=== PATIENT | female | born 1990 | race Caucasian/White ===

== ENCOUNTER → 2020-08-15 13:37 | Outpatient (ROUT) | payer OTHER, SELFPAY | PROVIDERS: Visit Provider Physician Assistant | DX: Z11.59 Encounter for screening for other viral diseases (principal) | CPT/HCPCS: 87635 ==

== ENCOUNTER → 2021-03-19 16:02 | Outpatient (ROUT) | payer OTHER, SELFPAY ==
[2021-03-19 16:27] LABS: COVID19 -Nasal RAPID Negative (Negative)
== END ==
PROVIDERS: PCP Family Medicine; Visit Provider Physician Assistant
DX: R43.0 Anosmia (principal); R05 Cough; R09.81 Nasal congestion; J02.9 Acute pharyngitis, unspecified; Z20.822 Contact with and (suspected) exposure to COVID-19
CPT/HCPCS: 87635

== ENCOUNTER 2022-04-19 18:49 | Emergency (ER) | payer OTHER, SELFPAY ==
[2022-04-19 19:02] VITALS: BP 131/86; PULSE 94; RESP 18; TEMP 36.7; O2SAT 99
[2022-04-19 19:31] LABS: COVID19 -Nasal RAPID Negative (Negative)
== END 2022-04-19 20:43 | disposition left against medical advice (07) ==
PROVIDERS: Emergency Provider Emergency Medicine; PCP Family Medicine
DX: J02.9 Acute pharyngitis, unspecified (principal); Z20.822 Contact with and (suspected) exposure to COVID-19
CPT/HCPCS: 87070; 87635; 87880; 99282; C9803

== ENCOUNTER → 2022-10-02 13:23 | Outpatient (CLI) | payer OTHER, SELFPAY ==
[2022-10-02 14:17] LABS: Add Manual Diff / Slide Review NO; Basophils Absolute Auto 0 /uL (0-100); Basophils Percent Auto 0.3 % (0-2); Eosinophils Absolute Auto 100 /uL (0-450); Eosinophils Percent Auto 1.7 % (2-4); Hematocrit 38.9 % (36-46); Hemoglobin 13.5 g/dL (12.0-16.0); Lymphocytes Absolute Auto 1500 /uL (1100-4500); Lymphocytes Percent Auto 24.2 % (25-40); Mean Corpuscular HGB Conc 34.6 % (30-36); Mean Corpuscular Hemoglobin 32.1 PG (26-34); Mean Corpuscular Volume 92.8 fL (80-100); Monocytes Absolute Auto 400 /uL (0-900); Monocytes Percent Auto 6.4 % (3-14); Neutrophils Absolute Auto 4100 /uL (1500-7000); Neutrophils Percent Auto 67.4 % (50-75); Platelet Count 201 X10^3/uL (150-400); Red Blood Cell Count 4.19 X10^6/uL (4.0-5.2); Red Cell Distribution Width 12.7 % (11.6-14.8); White Blood Cell Count 6.1 X10^3/uL (4.5-11.0)
[2022-10-02 15:38] LABS: Appearance Urine UA CLEAR; Bilirubin Urine UA NEGATIVE (NEGATIVE); Color Urine UA YELLOW; Glucose Urine UA NEGATIVE (Negative); Ketones Urine UA TRACE (NEGATIVE); Leukocyte Esterase Urine UA NEGATIVE (NEGATIVE); Nitrite Urine UA NEGATIVE (Negative); Occult Blood Urine UA NEGATIVE (Negative); Protein Urine UA NEGATIVE (Negative); Specific Gravity Urine UA >=1.030 (1.000-1.035); Urobilinogen Urine UA 0.2 E.U./dL (0.2); pH Urine UA 5.5 (4.5-8.0)
[2022-10-02 15:46] LABS: Hepatitis B Surface Antigen NEGATIVE s/c (NEGATIVE)
[2022-10-02 16:06] LABS: HIV 1 & 2 Ab/Ag 4th Gen Combo NEGATIVE (NEGATIVE); Hep C Virus Ab w/Reflex Quant NEGATIVE s/c (NEGATIVE)
[2022-10-03 08:39] LABS: RPR Screen Non Reactive (Non Reactive)
[2022-10-04 15:36] LABS: Varicella IgG Antibody 1925 index (Immune >165)
== END ==
PROVIDERS: PCP Family Medicine; Referring Provider Family Medicine; Visit Provider Family Medicine
DX: Z34.81 Encounter for supervision of other normal pregnancy, first trimester (principal)
CPT/HCPCS: 36415; 80055; 81003; 86787; 86803; 86850; 86900; 86901; 87086; 87389

== ENCOUNTER 2022-10-21 13:04 | Emergency (ER) | payer OTHER, SELFPAY ==
[2022-10-21 13:13] VITALS: BP 152/86; PULSE 120; RESP 16; TEMP 37; O2SAT 100; BMI 23.5
--- NOTE | 2022-10-21 13:19 | DI.US.S_ITS ---
PROCEDURE: US OB <= 14 WEEKS FETUS INDICATIONS: vaginal bleeding 13 weeks OUTSIDE/PRIOR DATING DATA: Last menstrual period (LMP): 07/17/2022 LMP-based estimated date of delivery (LUANA): 04/23/2023. First dating scan (date and location): 10/21/2022. Estimated date of delivery (LUANA) from first dating scan: 04/23/2023. TECHNIQUE: Real-time scanning was performed of the fetus, with image documentation and biometric measurements. COMPARISON: None. FINDINGS: General: A single living intrauterine gestation is present. Presentation: Variable. Placenta: Placental position is posterior , without previa. Amniotic fluid index: Subjectively adequate heart rate: 150 beats per minute. Maternal cervical canal: 3.7 cm long. Normal lower limit is 2.5 cm. biometrics: Biparietal diameter: 26 cm, 14 week 4 day Head circumference: 10.1 cm, 14 week 5 day Abdominal circumference: 8.9 cm, 15 week 1 day Femur length: 1.3 cm, 13 week 5 day Clinically estimated gestational age: 13 week 5 day Composite gestational age from present scan: 14 week 3 day Anatomic survey: Visualized anatomy within normal limits IMPRESSION: Single live intrauterine consistent with a 14 week 3 day gestation by current ultrasound Approved by: Sam Walters M.D. on 10/21/2022 at 14:14
--- NOTE | 2022-10-21 14:38 | ED_ITS ---
HPI - <Kathy Handley PA-C - Last Filed: 10/21/22 16:02> General Chief complaint: Vaginal Bleeding Stated complaint: 13 W, Cramping, Bleeding Time Seen by Provider: 10/21/22 13:26 Source: patient Mode of arrival: Ambulatory History of Present Illness HPI Narrative: 31-year-old 101 female who is 13 weeks presents to the ED with 2 days of pelvic cramping and spotting. Patient states that her cramping started last night, this morning she noted some bright red blood on the tissue when she was wiping. Patient states that her cramping has stayed the same since it started, the bleeding seems to have reduced. Patient denies fever, chills, chest pain, shortness of breath, dysuria, lightheadedness, dizziness, syncope. Patient has a history of cervical incompetence, has required cervical cerclage for a term . Patient had a OB ultrasound last week that was normal. Patient also has a cerclage scheduled for November [address] Beebe at [facility]. Related Data Home Medications Medication Instructions Recorded Confirmed prenat.vits,kiersten,non-ykww-uyrct 1 tab PO DAILY 08/31/22 09/22/22 Previous Rx's Medication Instructions Recorded ondansetron 4 mg disintegrating 4 mg PO Q8H PRN nausea and 09/22/22 tablet vomiting #30 tabs vit 67-iron ps 29 mg 1 cap PO DAILY #90 caps 09/22/22 iron-folate no.1 1 mg-dha 200 mg capsule (Vitafol Ultra) Allergies Allergy/AdvReac Type Severity Reaction Status Date / Time No Known Drug Allergies Allergy Unverified 09/22/22 12:07 Review of Systems <Kathy Handley PA-C - Last Filed: 10/21/22 16:02> Review of Systems ROS Unobtainable: All systems reviewed & are unremarkable except as noted in HPI and below Constitutional Constitutional: Denies chills, Denies fatigue, Denies fever(s), Denies frequent falls, Denies lethargy and Denies weakness Eyes Eyes: Denies change in vision, Denies eye discharge, Denies irritation and Denies loss of vision ENT Ears, Nose, Mouth, and Throat: Denies change in voice, Denies dizziness, Denies neck pain, Denies sore throat and Denies throat swelling Cardiovascular Cardiovascular: Denies chest pain, Denies irregular heart rhythm, Denies lightheadedness, Denies palpitations, Denies dyspnea, Denies dyspnea on exertion and Denies orthopnea Respiratory Respiratory: Denies cough, Denies dyspnea, Denies dyspnea on exertion and Denies wheezing Gastrointestinal Gastrointestinal: Denies abdominal pain, Denies change in bowel habits, Denies diarrhea, Denies nausea and Denies vomiting Genitourinary Genitourinary: Denies hematuria, Denies flank pain, Denies urinary incontinence and Denies urinary urgency Comments: Vaginal spotting; pelvic cramping Musculoskeletal Musculoskeletal: Denies back pain, Denies muscle weakness, Denies neck pain, Denies numbness and Denies tingling Integumentary/Breasts Skin/Breast: Denies pruritus, Denies erythema, Denies rash and Denies wounds Neurologic Neurologic: Denies behavioral changes, Denies confusion, Denies dizziness, Denies frequent falls, Denies loss of vision, Denies numbness, Denies tingling and Denies weakness Psychiatric Psychiatric: Denies anxiety, Denies behavioral changes, Denies confusion, Denies depression, Denies homicidal ideation and Denies suicidal ideation Endocrine Endocrine: Denies fatigue, Denies flushing and Denies palpitations Hematologic/Lymphatic Hematologic/Lymphatic: Denies easy bruising Allergic/Immunologic Allergic/Immunologic: Denies urticaria, Denies throat swelling and Denies wheezing Exam <Kathy Handley PA-C - Last Filed: 10/21/22 16:02> Narrative Exam Narrative: Const General:?cooperative, healthy appearing and comfortable [facility] Head:?normal to inspection Ears:?hearing grossly normal bilaterally Nose:?external nose normal Face and sinus:?normal facial exam and sinuses nontender Mouth:?oral mucosae normal Throat:?posterior oropharynx normal Eyes General:?appearance normal, both eyes and all related structures Neck Neck:?normal visual inspection and no lymphadenopathy noted Resp Effort & Inspection:?normal respiratory effort Auscultation:?clear to auscultation bilaterally Cardio Rate:?regular rate Rhythm:?regular rhythm GI Abdomen is soft, appears appropriately distended for gestation age. Abdomen is not TTP Neuro General:?patient alert, patient awake and patient oriented x3 Initial Vital Signs Initial Vital Signs: Vital Signs Temperature 98.6 F 10/21/22 13:13 Pulse Rate 120 H 10/21/22 13:13 Respiratory Rate 16 10/21/22 13:13 Blood Pressure 152/86 H 10/21/22 13:13 Pulse Oximetry 100 10/21/22 13:13 Oxygen Delivery Method 10/21/22 13:13 <Will Dias MD - Last Filed: 10/22/22 11:27> Initial Vital Signs Initial Vital Signs: Vital Signs Temperature 98.6 F 10/21/22 13:13 Pulse Rate 120 H 10/21/22 13:13 Respiratory Rate 16 10/21/22 13:13 Blood Pressure 152/86 H 10/21/22 13:13 Pulse Oximetry 100 10/21/22 13:13 Oxygen Delivery Method 10/21/22 13:13 Course <Kathy Handley PA-C - Last Filed: 10/21/22 16:02> Orders Ordered: Discontinued Medications Acetaminophen (Acetaminophen 325 Mg Tablet) 975 mg PO NOW ONE Stop: 10/21/22 14:37 Last Admin: 10/21/22 14:43 Dose: 975 mg Documented By: KANU Vital Signs Vital signs: Vital Signs - 8 hr 10/21/22 13:13 Temperature 98.6 F Pulse Rate 120 H Respiratory Rate 16 Blood Pressure 152/86 H Pulse Oximetry 100 Oxygen Delivery Method Room Air <Will Dias MD - Last Filed: 10/22/22 11:27> Orders Ordered: Discontinued Medications Acetaminophen (Acetaminophen 325 Mg Tablet) 975 mg PO NOW ONE Stop: 10/21/22 14:37 Last Admin: 10/21/22 14:43 Dose: 975 mg Documented By: KANU Vital Signs Vital signs: Vital Signs - 8 hr 10/21/22 13:13 Temperature 98.6 F Pulse Rate 120 H Respiratory Rate 16 Blood Pressure 152/86 H Pulse Oximetry 100 Oxygen Delivery Method Room Air MDM - OB/Uterine Contractions <Kathy Handley PA-C - Last Filed: 10/21/22 16:02> Lab Data 10/21/22 14:25 10/21/22 14:25 Labs: Lab Results 10/21/22 10/21/22 10/21/22 Range/Units 14:25 14:25 14:25 WBC 8.1 (4.5-11.0) X10^3/uL RBC 4.26 (4.0-5.2) X10^6/uL Hgb 13.8 (12.0-16.0) g/dL Hct 39.1 (36-46) % MCV 91.7 (80-100) fL MCH 32.3 (26-34) PG MCHC 35.2 (30-36) % RDW 12.5 (11.6-14.8) % Plt Count 208 (150-400) X10^3/uL Neut % (Auto) 78.3 H (50-75) % Lymph % (Auto) 15.8 L (25-40) % [place] % (Auto) 4.8 (3-14) % Eos % (Auto) 0.7 L (2-4) % Baso % (Auto) 0.4 (0-2) % Neut # (Auto) 6300 (5833-9089) /uL Lymph # (Auto) 1300 (7067-4029) /uL [place] # (Auto) 400 (0-900) /uL Eos # (Auto) 100 (0-450) /uL Baso # (Auto) 0 (0-100) /uL Sodium 136 L (137-145) mmol/L Potassium 4.1 (3.4-5.1) mmol/L Chloride 101 (98-107) mmol/L Carbon Dioxide 25 (22-32) mmol/L BUN 7 (7-17) mg/dL Creatinine 0.54 (0.52-1.04) mg/dL Estimated GFR > 60 (>60) mL/min BUN/Creatinine Ratio 13.0 (6-22) Glucose 90 (70-100) mg/dL Calcium 8.9 (8.4-10.2) mg/dL Total Bilirubin 0.5 (0.2-1.3) mg/dL AST 21 (14-36) IU/L ALT 12 (<35) IU/L Alkaline Phosphatase 53 (38-126) U/L Total Protein 7.3 (6.3-8.2) g/dL Albumin 4.0 (3.5-5.0) g/dL Globulin 3.3 (1.7-4.1) g/dL Albumin/Globulin Ratio 1.2 (1.0-2.8) HCG, Quant 49536 mIU/mL Blood Type B Positive Antibody Screen Negative Urine Dip Bedside Urine Glucose Negative Bedside Urine Bilirubin - Negative Bedside Urine Ketone - Negative Urine Specific [place] 1.010 Bedside Urine Occult Blood - Negative Bedside Urine pH 7.0 Bedside Urine Protein - Negative Bedside Urine Urobilinogen - Negative Bedside Urine Nitrite - Negative Bedside Urine Leukocytes - Negative Esterase MDM Narrative Medical decision making narrative: 31-year-old 89 female who is 13 weeks presents to the ED with 2 days of pelvic cramping and spotting. Concern for threatened miscarriage versus cervical incompetence versus other. Will obtain labs, UA, OB ultrasound. Will reassess. Urine, labs within normal limits. Ultrasound shows single live intrauterine consistent with a [address] Beebe from [facility] was consulted. Spoke with Dr. Singletary, who is covering for Dr. Beebe today who will see her in the next 24-48 hours in clinic. [facility] has reached out to the patient and patient is scheduled for a appointment time for tomorrow morning. Discussed findings with patient and next steps. ED return precautions were discussed with patient. Patient verbalized understanding. Medical records reviewed: Yes <Will Dias MD - Last Filed: 10/22/22 11:27> Medical Records Medical records narrative: I was immediately available in the department for consultation. Documentation has been reviewed. I agree with assessment and plan. Lab Data Labs: Lab Results 10/21/22 10/21/22 10/21/22 Range/Units 14:25 14:25 14:25 WBC 8.1 (4.5-11.0) X10^3/uL RBC 4.26 (4.0-5.2) X10^6/uL Hgb 13.8 (12.0-16.0) g/dL Hct 39.1 (36-46) % MCV 91.7 (80-100) fL MCH 32.3 (26-34) PG MCHC 35.2 (30-36) % RDW 12.5 (11.6-14.8) % Plt Count 208 (150-400) X10^3/uL Neut % (Auto) 78.3 H (50-75) % Lymph % (Auto) 15.8 L (25-40) % [place] % (Auto) 4.8 (3-14) % Eos % (Auto) 0.7 L (2-4) % Baso % (Auto) 0.4 (0-2) % Neut # (Auto) 6300 (7323-0563) /uL Lymph # (Auto) 1300 (5752-4372) /uL [place] # (Auto) 400 (0-900) /uL Eos # (Auto) 100 (0-450) /uL Baso # (Auto) 0 (0-100) /uL Sodium 136 L (137-145) mmol/L Potassium 4.1 (3.4-5.1) mmol/L Chloride 101 (98-107) mmol/L Carbon Dioxide 25 (22-32) mmol/L BUN 7 (7-17) mg/dL Creatinine 0.54 (0.52-1.04) mg/dL Estimated GFR > 60 (>60) mL/min BUN/Creatinine Ratio 13.0 (6-22) Glucose 90 (70-100) mg/dL Calcium 8.9 (8.4-10.2) mg/dL Total Bilirubin 0.5 (0.2-1.3) mg/dL AST 21 (14-36) IU/L ALT 12 (<35) IU/L Alkaline Phosphatase 53 (38-126) U/L Total Protein 7.3 (6.3-8.2) g/dL Albumin 4.0 (3.5-5.0) g/dL Globulin 3.3 (1.7-4.1) g/dL Albumin/Globulin Ratio 1.2 (1.0-2.8) HCG, Quant 91673 mIU/mL Blood Type B Positive Antibody Screen Negative Urine Dip Bedside Urine Glucose Negative Bedside Urine Bilirubin - Negative Bedside Urine Ketone - Negative Urine Specific [place] 1.010 Bedside Urine Occult Blood - Negative Bedside Urine pH 7.0 Bedside Urine Protein - Negative Bedside Urine Urobilinogen - Negative Bedside Urine Nitrite - Negative Bedside Urine Leukocytes - Negative Esterase Discharge Plan Departure Patient Disposition: Home Clinical Impression: Vaginal bleeding during Instructions: DI for Vaginal Bleeding During Activity Restrictions/Additional Instructions: You were evaluated in the ED today for vaginal bleeding and cramping during . Your labs, urine were normal. Your ultrasound was normal as well showing a single live intrauterine [address] Beebe from [facility] who is later to do your cerclage later this month. Per Dr. Beebe, they will be reaching out to you via telephone and will see you in the clinic in the next 24-48 hours for further evaluation. Pelvic cramping and bleeding during can sometimes be a benign occurrence versus a sign of a miscarriage. If you have increased bleeding, worsening abdominal pain, please return to the ED. Please follow-up with Dr. Chapa as soon as possible. Prescriptions: No Action Vitafol Ultra 29 mg iron- 1 mg-200 mg capsule 1 cap PO DAILY Qty: 90 3RF ondansetron 4 mg tablet,disintegrating 4 mg PO Q8H PRN (Reason: nausea and vomiting) Qty: 30 3RF prenat.vits,kiersten,muh-[id number]-ywbva Tablet 1 tab PO DAILY Referrals: Shanta Blanchard MD [Primary Care Provider] - Stand Alone Forms: Patient Portal/API
[2022-10-21] MEDS: ACETAMINOPHEN 325 MG TABLET 975 MG PO (14:43)
[2022-10-21 14:55] LABS: Add Manual Diff / Slide Review NO; Basophils Absolute Auto 0 /uL (0-100); Basophils Percent Auto 0.4 % (0-2); Eosinophils Absolute Auto 100 /uL (0-450); Eosinophils Percent Auto 0.7 % (2-4); Hematocrit 39.1 % (36-46); Hemoglobin 13.8 g/dL (12.0-16.0); Lymphocytes Absolute Auto 1300 /uL (1100-4500); Lymphocytes Percent Auto 15.8 % (25-40); Mean Corpuscular HGB Conc 35.2 % (30-36); Mean Corpuscular Hemoglobin 32.3 PG (26-34); Mean Corpuscular Volume 91.7 fL (80-100); Monocytes Absolute Auto 400 /uL (0-900); Monocytes Percent Auto 4.8 % (3-14); Neutrophils Absolute Auto 6300 /uL (1500-7000); Neutrophils Percent Auto 78.3 % (50-75); Platelet Count 208 X10^3/uL (150-400); Red Blood Cell Count 4.26 X10^6/uL (4.0-5.2); Red Cell Distribution Width 12.5 % (11.6-14.8); White Blood Cell Count 8.1 X10^3/uL (4.5-11.0)
[2022-10-21 15:06] LABS: Alanine Aminotransferase 12 IU/L (<35); Albumin Globulin Ratio 1.2 (1.0-2.8); Alkaline Phosphatase 53 U/L (38-126); Aspartate Aminotransferase 21 IU/L (14-36); Bilirubin Total 0.5 mg/dL (0.2-1.3); Blood Urea Nitrogen 7 mg/dL (7-17); Calcium 8.9 mg/dL (8.4-10.2); Carbon Dioxide 25 mmol/L (22-32); Chloride 101 mmol/L (98-107); Estimated Glomerular Filt Rate > 60 mL/min (>60); Globulin 3.3 g/dL (1.7-4.1); Glucose 90 mg/dL (70-100); HEMOLYSIS < 15 (0-50); Potassium 4.1 mmol/L (3.4-5.1); Sodium 136 mmol/L (137-145); Total Protein 7.3 g/dL (6.3-8.2)
[2022-10-21 15:47] LABS: HCG Quantitative /Beta subunit 44955 mIU/mL
[2022-10-21 15:58] VITALS: BP 113/70; PULSE 88; RESP 16; O2SAT 99
== END 2022-10-21 15:59 | disposition home or self-care (01) ==
PROVIDERS: Emergency Medicine; Emergency Provider Student in an Organized Health Care Education/Training Program; PCP Family Medicine
DX: O46.91 Antepartum hemorrhage, unspecified, first trimester (principal); R10.2 Pelvic and perineal pain; Z3A.13 13 weeks gestation of pregnancy
CPT/HCPCS: 36415; 76801; 80053; 81003; 84702; 85025; 86850; 86900; 86901; 99283; 99284

== ENCOUNTER → 2023-01-26 10:08 | Outpatient (CLI) | payer OTHER, SELFPAY ==
[2023-01-26 12:49] LABS: GTT (PREG) 1 Hour PP 50gm Dose 108 mg/dL (76-139)
[2023-01-26 13:25] LABS: Add Manual Diff / Slide Review NO; Basophils Absolute Auto 0 /uL (0-100); Basophils Percent Auto 0.4 % (0-2); Eosinophils Absolute Auto 200 /uL (0-450); Hematocrit 34.6 % (36-46); Hemoglobin 12.6 g/dL (12.0-16.0); Lymphocytes Absolute Auto 1600 /uL (1100-4500); Lymphocytes Percent Auto 20.5 % (25-40); Mean Corpuscular HGB Conc 36.3 % (30-36); Mean Corpuscular Hemoglobin 34.6 PG (26-34); Mean Corpuscular Volume 95.2 fL (80-100); Monocytes Absolute Auto 500 /uL (0-900); Monocytes Percent Auto 6.1 % (3-14); Neutrophils Absolute Auto 5600 /uL (1500-7000); Platelet Count 191 X10^3/uL (150-400); Red Blood Cell Count 3.64 X10^6/uL (4.0-5.2); Red Cell Distribution Width 13.1 % (11.6-14.8)
== END ==
PROVIDERS: PCP Family Medicine; Referring Provider Family Medicine; Visit Provider Family Medicine
DX: Z34.82 Encounter for supervision of other normal pregnancy, second trimester (principal); Z3A.27 27 weeks gestation of pregnancy
CPT/HCPCS: 36415; 82950; 85025

== ENCOUNTER → 2023-03-03 13:24 | Outpatient (CLI) | payer OTHER, SELFPAY ==
--- NOTE | 2023-03-03 13:25 | DI.US.S_ITS ---
PROCEDURE: US OB LIMITED INDICATIONS: LGA OUTSIDE/PRIOR DATING DATA: Last menstrual period (LMP): July 17, 2022. LMP-based estimated date of delivery (LUANA): April 23, 2023. First dating scan (date and location): October 21, 2022. TECHNIQUE: Real-time scanning was performed of the fetus, with image documentation and biometric measurements. Endovaginal scanning: Not performed COMPARISON: None. FINDINGS: General: A single living intrauterine gestation is present. Presentation: Vertex. Placenta: Placental position is posterior , without previa. Amniotic fluid index: 24.1 cm cm, normal range is 5-24 cm. Single deepest vertical pocket is 8.6 cm. heart rate: 140 beats per minute. Maternal cervical canal: 2.5 cm long with cerclage. Normal lower limit is 2.5 cm. biometrics: Biparietal diameter: 8.5 cm, 34 weeks and 2 days Head circumference: 30.7 cm, 34 weeks and 2 days Abdominal circumference: 28.7 cm, 32 weeks and 5 days Femur length: 6.1 cm, 31 weeks and 4 days Clinically estimated gestational age: 32 weeks and 5 days Composite gestational age from present scan: 33 weeks and 2 days Estimated weight and percentile: 2024 g which correlates with the 39th percentile Other: Not applicable. IMPRESSION: Single living intrauterine gestation with estimated sonographic gestational age of approximately 33 weeks and 2 days versus approximately 32 weeks and 5 days based off clinical dating. Normal interval growth has occurred. Measurements are concordant. Four-quadrant GIN measures approximately 24.1 cm with largest vertical pocket at 8.6 cm. Measurements are at the 95th percentile for gestational age. Cervical length of 2.5 cm with cerclage. We strive to produce accurate, complete, and clear reports of imaging services. To assist us in improving patient care, this report was composed using standard report templates and voice recognition software. Therefore, it may contain abnormal punctuation, insertions and/or omissions. Occasional wrong-word or sound-alike substitutions may occur. Though we review the report and make efforts to correct it, we do recommend that the report be read carefully in proper context to recognize any text inaccuracies. Dictated by: Garland De La Vega M.D. on 03/03/2023 at 17:48 Approved by: Garland De La Vega M.D. on 03/03/2023 at 17:52
== END ==
PROVIDERS: PCP Family Medicine; Referring Provider Family Medicine; Visit Provider Family Medicine
DX: O26.843 Uterine size-date discrepancy, third trimester (principal); Z3A.33 33 weeks gestation of pregnancy
CPT/HCPCS: 76815

== ENCOUNTER 2023-03-08 10:42 | Outpatient (CLI) | payer OTHER, SELFPAY | END 2023-03-08 11:20 | disposition home or self-care (01) | LOC: LABOR 11:06 → OB 03-19 09:48 | PROVIDERS: PCP Family Medicine; Referring Provider Family Medicine; Visit Provider Family Medicine | DX: O40.3XX0 Polyhydramnios, third trimester, not applicable or unspecified (principal); Z3A.33 33 weeks gestation of pregnancy | CPT/HCPCS: 36415; 59025; 82950; G0378; G0379 ==

== ENCOUNTER → 2023-03-08 11:25 | Outpatient (CLI) | payer OTHER, SELFPAY ==
[2023-03-08 13:43] LABS: GTT (PREG) 1 Hour PP 50gm Dose 107 mg/dL (76-139)
== END ==
PROVIDERS: PCP Family Medicine; Referring Provider Family Medicine; Visit Provider Family Medicine
DX: O40.9XX0 Polyhydramnios, unspecified trimester, not applicable or unspecified (principal)
CPT/HCPCS: 36415; 82950

== ENCOUNTER → 2023-03-11 11:20 | Outpatient (CLI) | payer OTHER, SELFPAY ==
--- NOTE | 2023-03-11 11:21 | DI.US.S_ITS ---
PROCEDURE: US OB LIMITED INDICATIONS: POLYHYDRAMINOS FOLLOW UP OUTSIDE/PRIOR DATING DATA: Last menstrual period (LMP): 07/17/2022. LMP-based estimated date of delivery (LUANA): 04/23/2023. First dating scan (date and location): 10/21/2022; [facility]. Estimated date of delivery (LUANA) from first dating scan: 04/20/2023. The calculations are made using the working LUANA of 04/23/2023. TECHNIQUE: Real-time scanning was performed of the fetus, with image documentation and biometric measurements. Biophysical profile was also obtained. COMPARISON: [facility], OB <= 14 WEEKS FETUS, 10/21/2022, 13:57. [facility], OB LIMITED, 03/03/2023, 13:35. FINDINGS: General: A single living intrauterine gestation is present. Presentation: Vertex. Placenta: Placental position is posterior , without previa. Amniotic fluid index: 29.2 cm, normal range is 5-24 cm. Single deepest vertical pocket is a 0.4 cm. heart rate: 121 beats per minute. Maternal cervical canal: Not visualized biometrics: Not performed Clinically estimated gestational age: 33 weeks 6 days IMPRESSION: 1. A single living intrauterine gestation redemonstrated. 2. GIN 29.2 cm, consistent with polyhydramnios. We strive to produce accurate, complete, and clear reports of imaging services. To assist us in improving patient care, this report was composed using standard report templates and voice recognition software. Therefore, it may contain abnormal punctuation, insertions and/or omissions. Occasional wrong-word or sound-alike substitutions may occur. Though we review the report and make efforts to correct it, we do recommend that the report be read carefully in proper context to recognize any text inaccuracies. Dictated by: Vince Noriega M.D. on 03/11/2023 at 17:10 Approved by: Vince Noriega M.D. on 03/11/2023 at 22:03
== END ==
PROVIDERS: PCP Family Medicine; Referring Provider Family Medicine; Visit Provider Family Medicine
DX: O40.3XX0 Polyhydramnios, third trimester, not applicable or unspecified (principal); Z3A.33 33 weeks gestation of pregnancy
CPT/HCPCS: 76815

== ENCOUNTER 2023-03-17 09:34 | Outpatient (CLI) | payer OTHER, SELFPAY ==
--- NOTE | 2023-03-17 11:15 | PM.OBTRLD ---
Visit Information Visit Information Date of evaluation: 03/17/23 Primary OB Provider: Shanta Blanchard Comments/Additional reasons for admission: 32yo at 34w5d here for NST for polyhydramnios. No vaginal bleeding, LOF. Feeling intermittent Rodney-Gonzalez. Feeling baby move regularly. [facility] Medical History (Updated 03/05/23 @ 09:33 by Shanta Blanchard MD) Abnormal Pap smear of cervix (~2015) Anxiety Human papilloma virus (~2015) No active medical problems Ovarian cyst (~2010) Vertigo (~2014) Surgical History (Updated 08/31/22 @ 10:03 by Joy Lindsay, RN) History of removal of skin mole [place] teeth extracted Family History (Updated 08/31/22 @ 10:06 by Joy Lindsay, RN) Father Hypertension Hyperlipidemia Mother Skin cancer Hyperlipidemia Grandfather Stroke Melanoma Grandfather Lung cancer Grandmother Alzheimer disease Grandmother Alzheimer disease Social History marital status: number of children: 1 household members: spouse and children lives independently: Yes caregiver/support person: Yes housing: house pets and animals: Yes (3 dogs) education level: college (lakhwinder's degree) occupational status: employed current occupational exposures/hazards: No special cami needs: No travel history: recent (domestic only) seatbelt use: always water heater temp set < 120 deg: Yes working smoke detector in home: Yes fire extinguisher in home: Yes carbon monox detector in home: Yes firearms in home: Yes firearms unloaded and locked: Yes do you feel safe at home: Yes Smoking Status: Never smoker second hand exposure: No alcohol intake: former (rarely when not ) substance use type: does not use during the past year weight has: remained stable well-balanced diet: about half the time daily servings fruits/ve-1 caffeine: Yes (aware of 200mg limit) Type(s) of exercise: aerobic and weight lifting frequency: 3-4 times per week Evaluation Evaluation Baseline heart rate: 130 Variability: Moderate (11-25) monitor accelerations: Present Monitor Decelerations: Absent Category of Tracing: Reactive Diagnosis, Plan/Disposition Final Diagnosis (1) Polyhydramnios: Status: Acute Plan/Disposition Plan: 32yo at 34w5d here for NST for polyhydramnios. NST reactive. GIN in clinic 25.1. Continue twice weekly NST with weekly GIN. OB Disposition: home
== END 2023-03-17 10:30 | disposition home or self-care (01) ==
LOC: LABOR 09:55 → OB 03-19 16:15
PROVIDERS: PCP Family Medicine; Referring Provider Family Medicine; Visit Provider Family Medicine
DX: O40.3XX0 Polyhydramnios, third trimester, not applicable or unspecified (principal); Z3A.34 34 weeks gestation of pregnancy
CPT/HCPCS: 59025; G0378; G0379

== ENCOUNTER 2023-03-19 10:33 | Outpatient (CLI) | payer OTHER, SELFPAY | END 2023-03-19 11:10 | disposition home or self-care (01) | LOC: LABOR 10:47 → OB 16:13 | PROVIDERS: PCP Family Medicine; Referring Provider Family Medicine; Visit Provider Family Medicine | DX: O40.3XX0 Polyhydramnios, third trimester, not applicable or unspecified (principal); Z3A.35 35 weeks gestation of pregnancy | CPT/HCPCS: 59025; G0378; G0379 ==

== ENCOUNTER 2023-03-22 10:28 | Outpatient (CLI) | payer OTHER, SELFPAY ==
--- NOTE | 2023-03-22 10:54 | P.TNLD_ITS ---
Visit Information Visit Information Date of evaluation: 03/22/23 Primary OB Provider: Shanta Blanchard Comments/Additional reasons for admission: Pt is a 32yo at 35w3d here for NST for polyhydramnios. No vaginal bleeding, contractions, LOF. She is feeling her baby move regularly. [facility] Medical History (Updated 03/05/23 @ 09:33 by Shanta Blanchard MD) Abnormal Pap smear of cervix (~2015) Anxiety Human papilloma virus (~2015) No active medical problems Ovarian cyst (~2010) Vertigo (~2014) Surgical History (Updated 08/31/22 @ 10:03 by Joy Lindsay, RN) History of removal of skin mole [place] teeth extracted Family History (Updated 08/31/22 @ 10:06 by Joy Lindsay, RN) Father Hypertension Hyperlipidemia Mother Skin cancer Hyperlipidemia Grandfather Stroke Melanoma Grandfather Lung cancer Grandmother Alzheimer disease Grandmother Alzheimer disease Social History marital status: number of children: 1 household members: spouse and children lives independently: Yes caregiver/support person: Yes housing: house pets and animals: Yes (3 dogs) education level: college (lakhwinder's degree) occupational status: employed current occupational exposures/hazards: No special cami needs: No travel history: recent (domestic only) seatbelt use: always water heater temp set < 120 deg: Yes working smoke detector in home: Yes fire extinguisher in home: Yes carbon monox detector in home: Yes firearms in home: Yes firearms unloaded and locked: Yes do you feel safe at home: Yes Smoking Status: Never smoker second hand exposure: No alcohol intake: former (rarely when not ) substance use type: does not use during the past year weight has: remained stable well-balanced diet: about half the time daily servings fruits/ve-1 caffeine: Yes (aware of 200mg limit) Type(s) of exercise: aerobic and weight lifting frequency: 3-4 times per week Evaluation Evaluation Baseline heart rate: 125 Variability: Moderate (11-25) monitor accelerations: Present Monitor Decelerations: Absent Category of Tracing: Reactive Diagnosis, Plan/Disposition Final Diagnosis (1) Polyhydramnios: Status: Acute Plan/Disposition Plan: Pt is a 32yo at 35w3d here for NST for polyhydramnios. NST reactive. Continue twice weekly NST with weekly GIN. OB Disposition: home
== END 2023-03-22 10:58 | disposition home or self-care (01) ==
LOC: LABOR 10:31 → OB 03-25 14:52
PROVIDERS: PCP Family Medicine; Referring Provider Family Medicine; Visit Provider Family Medicine
DX: O40.3XX0 Polyhydramnios, third trimester, not applicable or unspecified (principal); Z3A.35 35 weeks gestation of pregnancy
CPT/HCPCS: 59025; G0378; G0379

== ENCOUNTER 2023-03-26 10:27 | Outpatient (CLI) | payer OTHER, SELFPAY ==
--- NOTE | 2023-03-26 10:51 | P.TNLD_ITS ---
Visit Information Visit Information Date of evaluation: 03/26/23 Primary OB Provider: Shanta Blanchard Comments/Additional reasons for admission: 32yo at 36w0d here for NST for polyhydramnios. Feeling baby move regularly. No LOF, vaginal bleeding, contractions. [facility] Medical History (Updated 03/05/23 @ 09:33 by Shanta Blanchard MD) Abnormal Pap smear of cervix (~2015) Anxiety Human papilloma virus (~2015) No active medical problems Ovarian cyst (~2010) Vertigo (~2014) Surgical History (Updated 08/31/22 @ 10:03 by Joy Lindsay, RN) History of removal of skin mole [place] teeth extracted Family History (Updated 08/31/22 @ 10:06 by Joy iLndsay, RN) Father Hypertension Hyperlipidemia Mother Skin cancer Hyperlipidemia Grandfather Stroke Melanoma Grandfather Lung cancer Grandmother Alzheimer disease Grandmother Alzheimer disease Social History marital status: number of children: 1 household members: spouse and children lives independently: Yes caregiver/support person: Yes housing: house pets and animals: Yes (3 dogs) education level: college (lakhwinder's degree) occupational status: employed current occupational exposures/hazards: No special cami needs: No travel history: recent (domestic only) seatbelt use: always water heater temp set < 120 deg: Yes working smoke detector in home: Yes fire extinguisher in home: Yes carbon monox detector in home: Yes firearms in home: Yes firearms unloaded and locked: Yes do you feel safe at home: Yes Smoking Status: Never smoker second hand exposure: No alcohol intake: former (rarely when not ) substance use type: does not use during the past year weight has: remained stable well-balanced diet: about half the time daily servings fruits/ve-1 caffeine: Yes (aware of 200mg limit) Type(s) of exercise: aerobic and weight lifting frequency: 3-4 times per week Evaluation Evaluation Baseline heart rate: 130 Variability: Moderate (11-25) monitor accelerations: Present Monitor Decelerations: Absent Category of Tracing: Reactive Diagnosis, Plan/Disposition Final Diagnosis (1) Polyhydramnios: Status: Acute Plan/Disposition Plan: 32yo at 36w0d here for NST for polyhydramnios. GIN in clinic later today. NST reactive. Continue testing. OB Disposition: home
== END 2023-03-26 10:55 | disposition home or self-care (01) ==
LOC: LABOR 10:55 → OB 04-01 09:00
PROVIDERS: PCP Family Medicine; Referring Provider Family Medicine; Visit Provider Family Medicine
DX: O40.3XX0 Polyhydramnios, third trimester, not applicable or unspecified (principal); Z3A.36 36 weeks gestation of pregnancy; Z34.82 Encounter for supervision of other normal pregnancy, second trimester; Z3A.26 26 weeks gestation of pregnancy
CPT/HCPCS: 59025; 87653; G0378; G0379

== ENCOUNTER → 2023-03-26 12:01 | Outpatient (CLI) | payer OTHER, SELFPAY ==
[2023-03-27 13:05] LABS: Strep Grp B PCR NEG for Grp B Strep
== END ==
PROVIDERS: PCP Family Medicine; Visit Provider Family Medicine
DX: Z34.82 Encounter for supervision of other normal pregnancy, second trimester (principal); Z3A.26 26 weeks gestation of pregnancy
CPT/HCPCS: 87653

== ENCOUNTER 2023-04-02 10:53 | Day surgery (SDC) | payer OTHER, SELFPAY ==
[2023-04-02] VITALS (7 sets, daily range): BP systolic 102–121; BP diastolic 68–77; PULSE 76–104; RESP 12–26; TEMP 36.3–36.6; O2SAT 98–100; BMI 26.6
--- NOTE | 2023-04-02 10:40 | PM.GYNHP.1 ---
History of Present Illness History of Present Illness Narrative: Irina Rice is a 32 year old at 37w0d here for cerclage removal. Cerclage removal was attempted at [facility] on 03/29, however pt could not tolerate an in-office procedure. Cerclage placed for hx of delivery due to cervical incompetence at 21wks. Pt denies any vaginal bleeding, LOF, or consistent contractions prior to presentation. Since being here, she has felt contractions. She is feeling well. The pts has also been complicated by polyhydramnios with reassuring testing. [facility] Medical History (Updated 03/05/23 @ 09:33 by Shanta Blanchard MD) Abnormal Pap smear of cervix (~2015) Anxiety Human papilloma virus (~2015) No active medical problems Ovarian cyst (~2010) Vertigo (~2014) Surgical History (Updated 08/31/22 @ 10:03 by Joy Lindsay RN) History of removal of skin mole [place] teeth extracted Family History (Updated 08/31/22 @ 10:06 by Joy Lindsay RN) Father Hypertension Hyperlipidemia Mother Skin cancer Hyperlipidemia Grandfather Stroke Melanoma Grandfather Lung cancer Grandmother Alzheimer disease Grandmother Alzheimer disease Social History marital status: number of children: 1 household members: spouse and children lives independently: Yes caregiver/support person: Yes housing: house pets and animals: Yes (3 dogs) education level: college (lakhwinder's degree) occupational status: employed current occupational exposures/hazards: No special cami needs: No travel history: recent (domestic only) seatbelt use: always water heater temp set < 120 deg: Yes working smoke detector in home: Yes fire extinguisher in home: Yes carbon monox detector in home: Yes firearms in home: Yes firearms unloaded and locked: Yes do you feel safe at home: Yes Smoking Status: Never smoker second hand exposure: No alcohol intake: former substance use type: does not use during the past year weight has: remained stable well-balanced diet: about half the time daily servings fruits/ve-1 caffeine: Yes (aware of 200mg limit) Type(s) of exercise: aerobic and weight lifting frequency: 3-4 times per week Meds Home Medications and Allergies Home Medications Medication Instructions Recorded Confirmed Type ondansetron 4 mg disintegrating 4 mg PO Q8H PRN nausea and 09/22/22 03/17/23 Rx tablet vomiting #30 tabs Double Electric Breast Pump and #1 ea 03/05/23 03/17/23 Rx Supplies vit 67-iron ps 29 mg 1 cap PO DAILY 04/02/23 04/02/23 History iron-folate no.1 1 mg-dha 200 mg capsule (Vitafol Ultra) Allergies Allergy/AdvReac Type Severity Reaction Status Date / Time No Known Drug Allergies Allergy Verified 04/02/23 12:07 Exam Const General: cooperative, healthy appearing and comfortable Orientation: alert, awake and oriented x3 Resp Effort & Inspection: normal respiratory effort Auscultation: clear to auscultation bilaterally Cardio Rate: regular rate Rhythm: regular rhythm Heart Sounds: S1 normal, S2 normal and no murmurs GI Inspection: non-distended Palpation: soft and No tender Other: gravid Presentation: vertex Extrem General: no clubbing, cyanosis or edema Assessment & Plan Assessment & Plan narrative: 32yo at 37w0d here for cerclage removal under anesthesia, after not tolerating removal in MFM office. After discussion of risks vs benefits, including bleeding and infection, the pt was agreeable to removal under anesthesia.
--- NOTE | 2023-04-02 11:45 | PC.NURSE ---
NST performed in the center prior to scheduled cerclage removal per md order. NST cat I.
--- NOTE | 2023-04-02 12:23 | PM.PREOP ---
Pre-operative Note Interval Note History & Physical reviewed/Exam performed by Physician: Yes Changes to H&P: No
--- NOTE | 2023-04-02 14:18 | SUR.OPER ---
Lithotomy on padded OR bed, head on pillow, arms secured on padded arm boards at <90 degrees abduction. Legs secured in padded yellow fins stirrups.
--- NOTE | 2023-04-02 14:55 | SUR.PHASEI ---
Pt transferred to room 6 with Gabriella CERNA for FST and then US to be done by Dr hSort and continued eval there.
--- NOTE | 2023-04-02 14:57 | PM.OP.1 ---
Operative Date/Time/Diagnoses Date of procedure: 04/02/23 Time of procedure: 12:30 Pre-op diagnosis: 37w0d gestation Cerclage in place for hx of cervical incompetence Post-op diagnosis: same Procedure & Clinicians Procedure: Cerclage removal under general anesthesia Same procedure as scheduled: Yes Indications: Cerclage in place, term gestation Surgeon: Shanta Blanchard Click Yes if Unassisted: Yes Anesthesia Type: Epidural and Sedation Operative Notes Findings: Normal cervix, 3cm dilated Closure Type: not applicable Specimen(s): none sent Estimated Blood Loss (mL): 1 Blood products transfused: none Procedure in detail: After informed consent, the pt was taken to the OR. Epidural anesthesia was attempted twice without success. The pt was then sedated with propofol. She was placed in dorsal lithotomy position. Vaginal area was prepped with betadine. A sterile speculum was placed and the cervix visualized. The cerclage strings were grasped with forceps, and one strand of the cerclage cut. The cerclage was then removed with the entire length noted to be present. No significant bleeding was noted. The speculum was then removed. Cervical exam was completed, /-2. No complications with the procedure, and the pt and her were updated. Complications: none Post-operative Condition: stable Disposition: PACU Plan for aftercare: NST and monitor for contractions, may need r/o labor
--- NOTE | 2023-04-02 15:13 | DI.US.S_ITS ---
PROCEDURE: US OB BIOPHYSICAL PROFILE INDICATIONS: BPP OUTSIDE/PRIOR DATING DATA: Last menstrual period (LMP): 07/17/2022. LMP-based estimated date of delivery (LUANA): 04/23/2023. First dating scan (date and location): 10/21/2022 at . The calculations are made using the working LUANA of 04/23/2023. TECHNIQUE: Real-time scanning was performed of the fetus, with image documentation and biometric measurements. Biophysical profile was also obtained. COMPARISON: [facility], OB LIMITED, 03/11/2023, 11:37. [facility], OB LIMITED, 03/03/2023, 13:35. [facility], OB <= 14 WEEKS FETUS, 10/21/2022, 13:57. FINDINGS: General: A single living intrauterine gestation is present. Presentation: Vertex. Placenta: Placental position is posterior , without previa. Amniotic fluid index: 25.7 cm, normal range is 5-24 cm. Single deepest vertical pocket is 8.6 cm. heart rate: 145 beats per minute. Maternal cervical canal: Not well seen. Biophysical profile: Tone: 2 points. Movement: 2 points. Respiration: 0 points. Largest pocket of fluid: 2 points. IMPRESSION: 1. A single living intrauterine gestation redemonstrated. The estimated gestational age is 37 weeks 0 day based on LMP. 2. biophysical profile score 6 out of 8. 3. Amniotic fluid index 25.7 (normal 5-24 cm), consistent with polyhydramnios. We strive to produce accurate, complete, and clear reports of imaging services. To assist us in improving patient care, this report was composed using standard report templates and voice recognition software. Therefore, it may contain abnormal punctuation, insertions and/or omissions. Occasional wrong-word or sound-alike substitutions may occur. Though we review the report and make efforts to correct it, we do recommend that the report be read carefully in proper context to recognize any text inaccuracies. Dictated by: Vince Noriega M.D. on 04/02/2023 at 16:57 Approved by: Vince Noriega M.D. on 04/02/2023 at 17:05
== END 2023-04-02 16:50 | disposition home or self-care (01) ==
LOC: OR 10:54 → OB 15:05 → LABOR 15:10
PROVIDERS: PCP Family Medicine; Referring Provider Family Medicine; Visit Provider Family Medicine
PROC: 0UVC7ZZ Restriction of Cervix, Via Natural or Artificial Opening (ICD-10-PCS; CPT 57700; principal; 2023-04-02 12:15)
DX: O34.33 Maternal care for cervical incompetence, third trimester (principal); Z3A.37 37 weeks gestation of pregnancy; O40.3XX0 Polyhydramnios, third trimester, not applicable or unspecified
CPT/HCPCS: 59871; 59025; 76819; J2704

== ENCOUNTER 2023-04-06 12:32 | Outpatient (CLI) | payer OTHER, SELFPAY ==
--- NOTE | 2023-04-06 13:20 | PM.OBTRLD ---
Visit Information Visit Information Date of evaluation: 04/06/23 Primary OB Provider: Shanta Blanchard Comments/Additional reasons for admission: 32yo at 37w4d here for NST for polyhydramnios. She is feeling her baby move regularly. [facility] Medical History (Updated 03/05/23 @ 09:33 by Shanta Blanchard MD) Abnormal Pap smear of cervix (~2015) Anxiety Human papilloma virus (~2015) No active medical problems Ovarian cyst (~2010) Vertigo (~2014) Surgical History (Updated 08/31/22 @ 10:03 by Joy Lindsay, RN) History of removal of skin mole [place] teeth extracted Family History (Updated 08/31/22 @ 10:06 by Joy Lindsay, RN) Father Hypertension Hyperlipidemia Mother Skin cancer Hyperlipidemia Grandfather Stroke Melanoma Grandfather Lung cancer Grandmother Alzheimer disease Grandmother Alzheimer disease Social History marital status: number of children: 1 household members: spouse and children lives independently: Yes caregiver/support person: Yes housing: house pets and animals: Yes (3 dogs) education level: college (lakhwinder's degree) occupational status: employed current occupational exposures/hazards: No special cami needs: No travel history: recent (domestic only) seatbelt use: always water heater temp set < 120 deg: Yes working smoke detector in home: Yes fire extinguisher in home: Yes carbon monox detector in home: Yes firearms in home: Yes firearms unloaded and locked: Yes do you feel safe at home: Yes Smoking Status: Never smoker second hand exposure: No alcohol intake: former substance use type: does not use during the past year weight has: remained stable well-balanced diet: about half the time daily servings fruits/ve-1 caffeine: Yes (aware of 200mg limit) Type(s) of exercise: aerobic and weight lifting frequency: 3-4 times per week Evaluation Evaluation Baseline heart rate: 125 Variability: Moderate (11-25) monitor accelerations: Present Monitor Decelerations: Absent Category of Tracing: Reactive Diagnosis, Plan/Disposition Final Diagnosis (1) Polyhydramnios: Status: Acute Plan/Disposition Plan: 32yo at 37w4d here for NST for polyhydramnios. NST reactive. Stable for d/c home. Repeat NST later this week with GIN. OB Disposition: home
== END 2023-04-06 13:20 | disposition home or self-care (01) ==
LOC: LABOR 13:47 → OB 04-12 06:31
PROVIDERS: PCP Family Medicine; Referring Provider Family Medicine; Visit Provider Family Medicine
DX: O40.3XX0 Polyhydramnios, third trimester, not applicable or unspecified (principal); Z3A.37 37 weeks gestation of pregnancy
CPT/HCPCS: 59025; G0378; G0379

== ENCOUNTER → 2023-04-09 09:56 | Outpatient (CLI) | payer OTHER, SELFPAY ==
--- NOTE | 2023-04-09 09:56 | DI.US.S_ITS ---
PROCEDURE: US OB LIMITED INDICATIONS: [facility]IN FOR POLYHYDRAMNIOS OUTSIDE/PRIOR DATING DATA: Last menstrual period (LMP): 07/17/2022 LMP-based estimated date of delivery (LUANA): 04/23/2023 First dating scan (date and location): 10/21/2022 Estimated date of delivery (LUANA) from first dating scan: 04/23/2023 The calculations are made using the working LUANA of 04/23/2023 TECHNIQUE: Real-time scanning was performed of the fetus, with image documentation. Endovaginal scanning: Not performed COMPARISON: [facility], OB LIMITED, 03/11/2023, 11:37. [facility], OB LIMITED, 03/03/2023, 13:35. FINDINGS: A single living intrauterine gestation is present. Presentation: Vertex Placenta: Placental position is posterior without previa. Amniotic fluid index: 27.7 cm, normal range is 5-24 cm. Single deepest vertical pocket is 9.5 cm. heart rate: 149 beats per minute. Maternal cervical canal: Not well seen. Clinically estimated gestational age: 38 weeks 0 days IMPRESSION: 1. Single live intrauterine . 2. Amniotic fluid index is 27.7 cm, again consistent with polyhydramnios. Approved by: Dez Urias M.D. on 04/09/2023 at 14:11
== END ==
PROVIDERS: PCP Family Medicine; Referring Provider Family Medicine; Visit Provider Family Medicine
DX: O40.3XX0 Polyhydramnios, third trimester, not applicable or unspecified (principal); Z3A.38 38 weeks gestation of pregnancy
CPT/HCPCS: 76815

== ENCOUNTER 2023-04-09 10:13 | Outpatient (CLI) | payer OTHER, SELFPAY ==
--- NOTE | 2023-04-25 17:19 | P.TNLD_ITS ---
Visit Information Visit Information Date of evaluation: 03/10/23 Primary OB Provider: Shanta Blanchard On-call OB Provider: Carlene Palacios Reason for Evaluation: Yes non-stress test non-stress test reason: other (Polyhydramnios) [facility] Medical History (Updated 03/05/23 @ 09:33 by Shanta Blanchard MD) Abnormal Pap smear of cervix (~2015) Anxiety Human papilloma virus (~2015) No active medical problems Ovarian cyst (~2010) Vertigo (~2014) Surgical History (Updated 08/31/22 @ 10:03 by Joy Lindsay, RN) History of removal of skin mole [place] teeth extracted Family History (Updated 08/31/22 @ 10:06 by Joy Lindsay, RN) Father Hypertension Hyperlipidemia Mother Skin cancer Hyperlipidemia Grandfather Stroke Melanoma Grandfather Lung cancer Grandmother Alzheimer disease Grandmother Alzheimer disease Social History marital status: number of children: 1 household members: spouse and children lives independently: Yes caregiver/support person: Yes housing: house pets and animals: Yes (3 dogs) education level: college (lakhwinder's degree) occupational status: employed current occupational exposures/hazards: No special cami needs: No travel history: recent (domestic only) seatbelt use: always water heater temp set < 120 deg: Yes working smoke detector in home: Yes fire extinguisher in home: Yes carbon monox detector in home: Yes firearms in home: Yes firearms unloaded and locked: Yes do you feel safe at home: Yes Smoking Status: Never smoker second hand exposure: No alcohol intake: former substance use type: does not use during the past year weight has: remained stable well-balanced diet: about half the time daily servings fruits/ve-1 caffeine: Yes (aware of 200mg limit) Type(s) of exercise: aerobic and weight lifting frequency: 3-4 times per week Evaluation Evaluation Baseline heart rate: 130 Variability: Moderate (11-25) monitor accelerations: Present Monitor Decelerations: Absent Category of Tracing: Reactive Diagnosis, Plan/Disposition Plan/Disposition Plan: 38 weeks Polyhydramnios Reactive NST OB Disposition: home
== END 2023-04-09 10:49 | disposition home or self-care (01) ==
LOC: OB 04-12 06:34
PROVIDERS: PCP Family Medicine; Referring Provider Family Medicine; Visit Provider Family Medicine
DX: O40.3XX0 Polyhydramnios, third trimester, not applicable or unspecified (principal); Z3A.38 38 weeks gestation of pregnancy
CPT/HCPCS: 59025; 76815; G0378; G0379

== ENCOUNTER 2023-04-12 10:56 | Outpatient (CLI) | payer OTHER, SELFPAY ==
--- NOTE | 2023-04-25 17:21 | P.TNLD_ITS ---
Visit Information Visit Information Date of evaluation: 04/12/23 Primary OB Provider: Shanta Blanchard On-call OB Provider: Carleen Palacios Reason for Evaluation: Yes non-stress test non-stress test reason: other (Polyhydramnios) [facility] Medical History (Updated 03/05/23 @ 09:33 by Shanta Blanchard MD) Abnormal Pap smear of cervix (~2015) Anxiety Human papilloma virus (~2015) No active medical problems Ovarian cyst (~2010) Vertigo (~2014) Surgical History (Updated 08/31/22 @ 10:03 by Joy Lindsay, RN) History of removal of skin mole [place] teeth extracted Family History (Updated 08/31/22 @ 10:06 by Joy Lindsay, RN) Father Hypertension Hyperlipidemia Mother Skin cancer Hyperlipidemia Grandfather Stroke Melanoma Grandfather Lung cancer Grandmother Alzheimer disease Grandmother Alzheimer disease Social History marital status: number of children: 1 household members: spouse and children lives independently: Yes caregiver/support person: Yes housing: house pets and animals: Yes (3 dogs) education level: college (lakhwinder's degree) occupational status: employed current occupational exposures/hazards: No special cami needs: No travel history: recent (domestic only) seatbelt use: always water heater temp set < 120 deg: Yes working smoke detector in home: Yes fire extinguisher in home: Yes carbon monox detector in home: Yes firearms in home: Yes firearms unloaded and locked: Yes do you feel safe at home: Yes Smoking Status: Never smoker second hand exposure: No alcohol intake: former substance use type: does not use during the past year weight has: remained stable well-balanced diet: about half the time daily servings fruits/ve-1 caffeine: Yes (aware of 200mg limit) Type(s) of exercise: aerobic and weight lifting frequency: 3-4 times per week Evaluation Evaluation Baseline heart rate: 135 Variability: Moderate (11-25) monitor accelerations: Present Monitor Decelerations: Absent Category of Tracing: Reactive Diagnosis, Plan/Disposition Plan/Disposition Plan: 38+3 wks gestation Polyhydramnios Reactive NST OB Disposition: home
== END 2023-04-12 11:25 | disposition home or self-care (01) ==
LOC: OB 04-15 15:05
PROVIDERS: PCP Family Medicine; Referring Provider Family Medicine; Visit Provider Family Medicine
DX: O40.3XX0 Polyhydramnios, third trimester, not applicable or unspecified (principal); Z3A.38 38 weeks gestation of pregnancy
CPT/HCPCS: 59025; G0378; G0379

== ENCOUNTER 2023-04-13 06:17 | Inpatient (IN) | payer OTHER, SELFPAY ==
[2023-04-13] MEDS: MORPHINE 4 MG/ML INJ 8 MG IM (06:56)
--- NOTE | 2023-04-13 08:01 | P.HPOB_ITS ---
OB HPI Date/Time Date of admission: 04/13/23 Date Patient Seen: 04/13/23 Time Patient Seen: 08:01 History of Present Condition Chief complaint: IUP, 38+4 wks EGA, early labor : 3 Para: 1 Narrative: Irina Rice is a 32 year old [id number] admitted in eearly labor. care has been provided by Dr. Shanta Blanchard who is currently on vacation and I am therefore assuming responsibility for the patient's care in labor and . Patient having contractions since early this morning and was seen on the center where she was given 8 mg of morphine sulfate IM for analgesia kept under observation. During that time her cervix is demonstrates s ignificant change and she is now admitted in early labor. The patient experienced premature delivery due to incompetent cervix with her 1st and has had cerclage placement with her subsequent 2 pregnancies. The patient's cerclage was removed at 37 weeks and her course has otherwise been largely uneventful solid early dating and normal milestones throughout. GBS is negative. History of Present care: good care Dating criteria: LMP confirmed by 1st trimester US Ultrasounds: normal 1st trimester US and normal mid trimester US Obstetrical complications: none Medical complications: none Preadmission Labs Blood type: B (+) positive -: Antibody screen: negative, GBS status: negative, HBsAG: negative, HIV: negative and RPR/VDLR: negative -: Chlamydia screen: not detected and Gonorrhea screen: not detected -: Rubella: immune and Varicella: immune HCT: 38.4 HCAB: negative PAP: Normal 1 hr GTT: 107 Prior (ies) History: x 2 with her first delivered prematurely at 21 wks due to incompetent cervix Evaluation Evaluation Baseline heart rate: 135 Variability: Moderate (11-25) monitor accelerations: Present Monitor Decelerations: Absent Contraction Frequency (minutes): 5 Uterine Contraction Intensity: Moderate Category of Tracing: Reactive Status: Category l Dilation (cm): 4 Effacement (%): 80 Dilation: 3-4 cm Effacement: >/=80% station: -2 Position of cervix: posterior Consistency: soft Mckay score: 8 Non-invasive Membranes Rupture Test: negative [facility] Medical History (Updated 03/05/23 @ 09:33 by Shanta Blanchard MD) Abnormal Pap smear of cervix (~2015) Anxiety Human papilloma virus (~2015) No active medical problems Ovarian cyst (~2010) Vertigo (~2014) Surgical History (Updated 08/31/22 @ 10:03 by Joy Lindsay, ERYN) History of removal of skin mole [place] teeth extracted Family History (Updated 08/31/22 @ 10:06 by Joy Lindsay RN) Father Hypertension Hyperlipidemia Mother Skin cancer Hyperlipidemia Grandfather Stroke Melanoma Grandfather Lung cancer Grandmother Alzheimer disease Grandmother Alzheimer disease Social History marital status: number of children: 1 household members: spouse and children lives independently: Yes caregiver/support person: Yes housing: house pets and animals: Yes (3 dogs) education level: college (lakhwinder's degree) occupational status: employed current occupational exposures/hazards: No special cami needs: No travel history: recent (domestic only) seatbelt use: always water heater temp set < 120 deg: Yes working smoke detector in home: Yes fire extinguisher in home: Yes carbon monox detector in home: Yes firearms in home: Yes firearms unloaded and locked: Yes do you feel safe at home: Yes Smoking Status: Never smoker second hand exposure: No alcohol intake: former substance use type: does not use during the past year weight has: remained stable well-balanced diet: about half the time daily servings fruits/ve-1 caffeine: Yes (aware of 200mg limit) Type(s) of exercise: aerobic and weight lifting frequency: 3-4 times per week Meds Home Medications and Allergies Home Medications Medication Instructions Recorded Confirmed Type ondansetron 4 mg disintegrating 4 mg PO Q8H PRN nausea and 09/22/22 04/13/23 Rx tablet vomiting #30 tabs Double Electric Breast Pump and #1 ea 03/05/23 04/13/23 Rx Supplies vit 67-iron ps 29 mg 1 cap PO DAILY 04/02/23 04/13/23 History iron-folate no.1 1 mg-dha 200 mg capsule (Vitafol Ultra) Allergies Allergy/AdvReac Type Severity Reaction Status Date / Time No Known Drug Allergies Allergy Verified 04/06/23 12:07 Review of Systems Review of Systems Narrative: Problem-specific ROS positives included in HPI OB Exam Vital signs Blood Pressure: 128/82 Pulse Rate: 96 Temperature: 97.5 F [facility] Head: normal to inspection, normocephalic and atraumatic Eyes General: appearance normal, both eyes and all related structures Resp Effort & Inspection: normal respiratory effort and able to speak in complete sen tences Auscultation: clear to auscultation bilaterally Cardio Rate: regular rate Rhythm: regular rhythm Heart Sounds: S1 normal, S2 normal and no murmurs Extremities Lower extremity: Yes normal to inspection GI Inspection: normal to inspection Palpation: Yes soft and Yes no hepatosplenomegaly Uterus Location (Fundal Height): 36 Estimated Weight (lbs): 7 Objective Labs 04/13/23 08:10 Assessment and Plan Assessment and Plan Assessment and Plan narrative: ASSESSMENT 1. Intrauterine , 38+4 wks EGA, early labor 2. History of incompetent cervix; s/p cerclage removal at 37 wks EGA 3. GBS negative status PLAN 1. Admit for labor and delivery 2. See admission orders
[2023-04-13] MEDS: LACTATED RINGERS 1,000 ML 100 ML IV ×2 (08:11→12:53)
[2023-04-13] MEDS: fentaNYL 100 MCG/2 ML INJ 50 MCG IV (08:25)
[2023-04-13 08:26] LABS: Add Manual Diff / Slide Review NO; Basophils Absolute Auto 0 /uL (0-100); Basophils Percent Auto 0.3 % (0-2); Eosinophils Absolute Auto 0 /uL (0-450); Eosinophils Percent Auto 0.2 % (2-4); Hematocrit 38.4 % (36-46); Hemoglobin 13.6 g/dL (12.0-16.0); Lymphocytes Absolute Auto 1300 /uL (1100-4500); Lymphocytes Percent Auto 11.7 % (25-40); Mean Corpuscular HGB Conc 35.4 % (30-36); Mean Corpuscular Hemoglobin 33.1 PG (26-34); Mean Corpuscular Volume 93.6 fL (80-100); Monocytes Absolute Auto 600 /uL (0-900); Neutrophils Absolute Auto 9300 /uL (1500-7000); Neutrophils Percent Auto 82.8 % (50-75); Platelet Count 167 X10^3/uL (150-400); Red Cell Distribution Width 13.3 % (11.6-14.8); White Blood Cell Count 11.2 X10^3/uL (4.5-11.0)
[2023-04-13 08:44] VITALS: BP 106/59
[2023-04-13] MEDS: FENT 2MCG/ML BUPIV 0.125% EPI 200 MCG/100 ML PLAST..BAG 10 MCG EPIDURAL ×2 (10:00→14:28)
--- NOTE | 2023-04-13 11:54 | PM.OBPNLAB ---
Date/Time Date Patient Seen: 04/13/23 Time Patient Seen: 11:54 Pain Control Pain control: tolerating well and epidural Pelvic Exam Dilation (cm): 5 Effacement (%): 100 station: -1 Amniotic membrane status: Ruptured (AROM, clear fluid, 1151) Contractions Contractions on admission: irregular Monitor mode: External Contraction pattern: Irregular Contraction phase: Resting Contraction intensity: Moderate Assessment and Plan Assessment: active labor Plan: continuous present management Comments: Observe for increased contraction activity following AROM and consider augmentation if post-AROM contractions are inadequate to affect cervical change.
[2023-04-13 12:02] VITALS: BP 128/82; PULSE 96; TEMP 36.4
[2023-04-13] MEDS: OXYTOCIN PREMIX 30 UNIT/500 ML PLAST..BAG IV (12:57)
--- NOTE | 2023-04-13 16:33 | PM.OBPRVD ---
Events: Other (Incompetent cervix; cerclage removed at 37 weeks EGA) Labor & Delivery Delivery date: 04/13/23 Intrapartal Events: None Cervical ripening method: none Induction method: none Delivery augmentation: rupture of membranes and pitocin Delivery monitor: external FHT and external uterine Route of delivery: Episiotomy description: None L&D Laceration Description: Perineal - 2nd Degree Delivery repair: chromic Estimated blood loss (mL): 250 Anesthesia Type: Epidural Complications: None Baby 1: gender: Male Presentation: vertex Position: Right Occiput Anterior Placenta delivery description: Spontaneous Cord Vessel Description: 3 Vessels score (1 min): 8 score (5 min): 9 weight: 7 lb 3.557 oz Plan for aftercare: Routine care
[2023-04-13] MEDS: ACETAMINOPHEN 325 MG TABLET 650 MG PO ×2 (17:19→23:10)
[2023-04-13] MEDS: IBUPROFEN 600 MG TABLET PO ×2 (17:19→23:10)
[2023-04-13 19:26] LABS: Alanine Aminotransferase 17 IU/L (<35)
[2023-04-13] MEDS: CALCIUM CARBONATE 500 MG TAB PO (19:42)
[2023-04-13 20:20] LABS: Hepatitis B Surface Antigen NEGATIVE s/c (NEGATIVE)
[2023-04-13 20:44] LABS: HIV 1 & 2 Ab/Ag 4th Gen Combo NEGATIVE (NEGATIVE); Hep C Virus Ab w/Reflex Quant NEGATIVE s/c (NEGATIVE)
[2023-04-14] MEDS: IBUPROFEN 600 MG TABLET PO ×2 (05:03→11:45)
[2023-04-14 06:32] LABS: Add Manual Diff / Slide Review NO; Basophils Absolute Auto 100 /uL (0-100); Basophils Percent Auto 0.5 % (0-2); Eosinophils Absolute Auto 0 /uL (0-450); Eosinophils Percent Auto 0.1 % (2-4); Hematocrit 28.5 % (36-46); Hemoglobin 10.2 g/dL (12.0-16.0); Lymphocytes Absolute Auto 1700 /uL (1100-4500); Lymphocytes Percent Auto 12.1 % (25-40); Mean Corpuscular HGB Conc 35.7 % (30-36); Mean Corpuscular Hemoglobin 33.7 PG (26-34); Mean Corpuscular Volume 94.5 fL (80-100); Monocytes Absolute Auto 800 /uL (0-900); Monocytes Percent Auto 5.5 % (3-14); Neutrophils Absolute Auto 11400 /uL (1500-7000); Neutrophils Percent Auto 81.8 % (50-75); Platelet Count 163 X10^3/uL (150-400); Red Blood Cell Count 3.02 X10^6/uL (4.0-5.2); Red Cell Distribution Width 13.5 % (11.6-14.8); White Blood Cell Count 13.9 X10^3/uL (4.5-11.0)
[2023-04-14] MEDS: OXYCODONE IR 5 MG TABLET PO (07:38)
[2023-04-14] MEDS: DOCUSATE 100 MG CAPSULE PO (09:11)
--- NOTE | 2023-04-14 18:09 | PM.OBDS.1 ---
Discharge Providers Provider Date of admission: 04/13/23 06:17 Discharge Date: 04/14/23 Primary care physician: Shanta Blanchard MD Consults: 04/13/23 07:57 Consult to Anesthesiology Urgent Comment: Consulting Provider: Bryan Kwan Reason for consultation: Epidural Has provider been notified: No 04/14/23 16:29 Consult to [employer] Routine Comment: Discharge provider: Bryan Kwan MD Summary Hospital Course Date Patient Seen: 04/14/23 Time Patient Seen: 18:09 Diagnoses: Intrauterine gestation, [place], 38+ 4 weeks gestational age, delivered by spontaneous vaginal urinary retention Hospital Course: Irina presented in early labor on the morning of 04/13/2023 and progressed well with Pitocin augmentation after AROM on the morning of 04/13/2023. She subsequently had an epidural placed and progressed well in labor delivering on the evening of 04/13/2023 a viable male with Apgars of 8/9, and a weight of 3276 g (7 lb 3.6 oz). Following delivery both mother and baby have done well with mother experiencing prompt return of bowel function, she is ambulating independently, tolerating regular diet, and her pain is well-controlled with oral pain medications. On the evening of delivery she was unable to void spontaneously and after a single straight catheterization had to have a Gallo catheter reinserted. On the afternoon of discharge however her catheter was removed and she is been able to void spontaneously with a postvoid residual less than 50 cc. She will be discharged at this time to home in an afebrile normotensive condition after counseling regarding precautionary symptoms, limitations activity, medications, and plans for follow-up which will be with Dr. Blanchard in 6 weeks. Medications at discharge will include resumption of all pre delivery medications along with Macrodantin 100 mg p.o. b.i.d. x5 days for UTI prophylaxis, oxycodone 5 mg p.o. every 6 hours as needed for pain, dispense 10 with no refills, and ibuprofen 600 mg p.o. q.6 hours as needed pain. Peripartum Data Infant Delivery Method: Natural Vaginal Laceration Description: Perineal - 2nd Degree Episiotomy description: None Procedures: Continuous lumbar epidural Spontaneous vaginal Repair, second-degree perineal laceration complications: other (Transient urinary retention) 1: Gender: Male Status at Discharge Cognitive/behavioral status at discharge: oriented Functional status at discharge: independent ambulation Overall status at discharge: patient is progressing back to baseline Time Spent with Patient Time attestation: Total time spent providing and/or coordinating discharge services: Time spent: Less than 30 minutes Objective Labs 04/14/23 06:03 Labs: Laboratory Results - last 24 hr 04/13/23 04/13/23 04/14/23 19:07 19:07 06:03 WBC 13.9 H RBC 3.02 L Hgb 10.2 L Hct 28.5 L MCV 94.5 MCH 33.7 MCHC 35.7 RDW 13.5 Plt Count 163 Neut % (Auto) 81.8 H Lymph % (Auto) 12.1 L [place] % (Auto) 5.5 Eos % (Auto) 0.1 L Baso % (Auto) 0.5 Neut # (Auto) 92500 H Lymph # (Auto) 1700 [place] # (Auto) 800 Eos # (Auto) 0 Baso # (Auto) 100 ALT 17 Hep Bs Antigen Negative Hepatitis C Antibody Negative HIV 1&2 Ab/P24 Ag 4thGn Negative Exam Const General: cooperative and comfortable Nutritional Appearance: average body habitus Orientation: alert and oriented x3 HENMT Head: normal to inspection, atraumatic and abrasion Ears: hearing grossly normal bilaterally Face and sinus: face symmetric Eyes General: appearance normal, both eyes and all related structures Conjunctivae: conjunctivae normal Sclera: sclerae normal EOM: EOM intact bilaterally Neck Neck: normal visual inspection Resp Effort & Inspection: normal respiratory effort and able to speak in complete sentences GI Inspection: normal to inspection Palpation: soft and no hepatosplenomegaly External Female Exam: other (No significant bleeding noted) Extrem General: no calf tenderness Psych Appearance: grossly normal Mental Status: mental status grossly normal Speech and Movement: speech and movement normal Mood: congruent mood Affect: normal affect Attitude: cooperative Thought Process: normal Thought Content: normal Judgment: judgment good Discharge Plan Discharge Plan Patient Disposition: Home Provider Discharge Comment: Please review the written instructions you received when you were discharged from the hospital. Your follow-up appointment will be scheduled with Dr. Blanchard for 6 weeks after delivery and she will see you then. If however in the meanwhile you have any issues, concerns, or questions, please contact Dr. Blanchard's office or me either through my office phone at [phone], or via the patient portal. Discharge orders & Medications Prescriptions: New nitrofurantoin monohyd/m-cryst [Macrobid] 100 mg capsule 100 mg PO Q12H 5 Days Qty: 10 0RF Rx Instructions: must administer with a meal/food ibuprofen 600 mg Tablet 600 mg PO Q6HR PRN (Reason: Pain, Mild (1-3)) Qty: 60 2RF oxycodone 5 mg Tablet 5 mg PO Q4HR PRN (Reason: Pain, Moderate (4-6)) Qty: 10 0RF Continued ondansetron 4 mg tablet,disintegrating 4 mg PO Q8H PRN (Reason: nausea and vomiting) Qty: 30 3RF (DME) Double Electric Breast Pump and Supplies See Rx Instructions .ROUTE .MEDSUPPLY Qty: 1 0RF Rx Instructions: As directed Vitafol Ultra 29 mg iron- 1 mg-200 mg capsule 1 cap PO DAILY Patient Comments: TAKE ONE CAPSULE BY MOUTH ONE TIME DAILY Follow up/Referrals: Piper Savage PA-C [[employer]] - 05/27/23 9:30 am Bryan Kwan MD [Physician] - Discharge Health Status Multidrug resistant organism: No MDRO Diet/Activity/Treatments Diet: Diet as Tolerated Activity: As tolerated Other treatments: [id number] Tylenol may be used for additional pain relief. [id number] stool softeners and/or MiraLax may be used as needed for constipation. Skin/Wound/Dressing Care Report to your healthcare provider any signs of infection, such as:: chills, fever Dressing: N/A Visit Report/Discharge Packet Instructions: DI for Labor and Delivery, Vaginal , DI for and Nipple Soreness Discharge Data Primary Care Provider: Shanta Blanchard
[2023-04-15 04:27] LABS: Hepatitis B Surf Ab Qualitativ Reactive (.)
== END 2023-04-14 19:30 | disposition home or self-care (01) | DRG 807 ==
PROVIDERS: Obstetrics & Gynecology; Admitting Provider Obstetrics & Gynecology; PCP Family Medicine; Referring Provider Obstetrics & Gynecology; Visit Provider Obstetrics & Gynecology
DX: O80 Encounter for full-term uncomplicated delivery; Z37.0 Single live birth; Z3A.38 38 weeks gestation of pregnancy
CPT/HCPCS: 36415; 59050; 59400; 59409; 85025; 86850; 86900; 86901; G0379; J2270; J2590; J3010

== ENCOUNTER → 2023-08-29 11:15 | Outpatient (CLI) | payer OTHER, SELFPAY ==
--- NOTE | 2023-08-29 11:16 | DI.MRI.S_ITS ---
PROCEDURE: MR HEAD/BRAIN WO CON INDICATIONS: headache and dizziness TECHNIQUE: Noncontrast axial T1 spin echo, axial T2 fast spin echo, sagittal and axial FLAIR, coronal T2 fast spin echo, axial gradient echo, axial diffusion and ADC through the brain. COMPARISON: None. FINDINGS: Image quality: Excellent. CSF Spaces: Basal cisterns are patent. No extra-axial fluid collections. Ventricles are normal in size and shape. Brain: No intracranial masses or hemorrhage. Cabrera/white matter interface is normal. Brainstem appears normal. Diffusion-weighted images demonstrate no acute ischemic insult. No chronic ischemic insults. Normal intravascular flow voids are present. Skull and face: Calvarium has normal marrow signal. Orbits appear normal. Sinuses: Sinuses and mastoids are clear. IMPRESSION: MRI brain without acute intracranial abnormalities. No evidence for mass or mass effect. Dictated by: Garland De La Vega M.D. on 08/30/2023 at 7:38 Approved by: Garland De La Vega M.D. on 08/30/2023 at 7:39
== END ==
PROVIDERS: PCP Family Medicine; Referring Provider Family Medicine; Visit Provider Family Medicine
DX: R51.9 Headache, unspecified (principal); R42 Dizziness and giddiness
CPT/HCPCS: 70551

== ENCOUNTER → 2023-08-31 11:46 | Outpatient (CLI) | payer OTHER, SELFPAY ==
[2023-08-31 12:32] LABS: Add Manual Diff / Slide Review NO; Basophils Absolute Auto 0 /uL (0-100); Basophils Percent Auto 0.9 % (0-2); Eosinophils Absolute Auto 100 /uL (0-450); Eosinophils Percent Auto 1.9 % (2-4); Hematocrit 40.7 % (36-46); Hemoglobin 14.4 g/dL (12.0-16.0); Lymphocytes Absolute Auto 1400 /uL (1100-4500); Lymphocytes Percent Auto 31.2 % (25-40); Mean Corpuscular HGB Conc 35.3 % (30-36); Mean Corpuscular Hemoglobin 32.2 PG (26-34); Mean Corpuscular Volume 91.2 fL (80-100); Monocytes Absolute Auto 300 /uL (0-900); Monocytes Percent Auto 5.8 % (3-14); Neutrophils Absolute Auto 2700 /uL (1500-7000); Neutrophils Percent Auto 60.2 % (50-75); Platelet Count 223 X10^3/uL (150-400); Red Blood Cell Count 4.46 X10^6/uL (4.0-5.2); Red Cell Distribution Width 12.5 % (11.6-14.8); White Blood Cell Count 4.6 X10^3/uL (4.5-11.0)
[2023-08-31 13:27] LABS: TSH w/ Reflex to FT4 0.59 uIU/mL (0.47-4.68)
[2023-08-31 19:08] LABS: Vitamin D 25 Hydroxy (D3) 47.2 ng/mL (30.0-100.0)
[2023-09-01 17:40] LABS: Vitamin B12 572 pg/mL (239-931)
== END ==
PROVIDERS: PCP Family Medicine; Referring Provider Family Medicine; Visit Provider Family Medicine
DX: R42 Dizziness and giddiness (principal)
CPT/HCPCS: 36415; 82306; 82607; 84443; 85025

== ENCOUNTER 2023-09-13 14:50 | Emergency (ER) | payer OTHER, SELFPAY ==
[2023-09-13] VITALS (14 sets, daily range): BP systolic 106–133; BP diastolic 55–95; PULSE 65–104; RESP 18–28; TEMP 36.9; O2SAT 97–100; BMI 23.0
[2023-09-13 16:23] LABS: Add Manual Diff / Slide Review NO; Basophils Absolute Auto 0 /uL (0-100); Basophils Percent Auto 0.4 % (0-2); Eosinophils Absolute Auto 0 /uL (0-450); Eosinophils Percent Auto 0.4 % (2-4); Hematocrit 44.1 % (36-46); Hemoglobin 15.7 g/dL (12.0-16.0); Lymphocytes Absolute Auto 1000 /uL (1100-4500); Lymphocytes Percent Auto 13.9 % (25-40); Mean Corpuscular HGB Conc 35.5 % (30-36); Mean Corpuscular Hemoglobin 32.3 PG (26-34); Mean Corpuscular Volume 91.1 fL (80-100); Monocytes Absolute Auto 300 /uL (0-900); Monocytes Percent Auto 3.7 % (3-14); Neutrophils Absolute Auto 6100 /uL (1500-7000); Neutrophils Percent Auto 81.6 % (50-75); Platelet Count 260 X10^3/uL (150-400); Red Blood Cell Count 4.84 X10^6/uL (4.0-5.2); Red Cell Distribution Width 12.5 % (11.6-14.8); White Blood Cell Count 7.5 X10^3/uL (4.5-11.0)
[2023-09-13 16:33] LABS: Alanine Aminotransferase 20 IU/L (<35); Albumin 4.6 g/dL (3.5-5.0); Albumin Globulin Ratio 1.2 (1.0-2.8); Alkaline Phosphatase 57 U/L (38-126); Aspartate Aminotransferase 28 IU/L (14-36); Bilirubin Total 0.7 mg/dL (0.2-1.3); Blood Urea Nitrogen 6 mg/dL (7-17); Calcium 9.7 mg/dL (8.4-10.2); Carbon Dioxide 26 mmol/L (22-32); Chloride 104 mmol/L (98-107); Estimated Glomerular Filt Rate > 60 mL/min (>60); Globulin 3.9 g/dL (1.7-4.1); Glucose 111 mg/dL (70-100); HEMOLYSIS < 15 (0-50); Lipase 111 U/L (23-300); Sodium 138 mmol/L (137-145); Total Protein 8.5 g/dL (6.3-8.2)
[2023-09-13] MEDS: SODIUM CHLORIDE 0.9% 1,000 ML 1000 ML IV (16:44)
[2023-09-13 17:07] LABS: Adenovirus Not Detected (Not Detect); B. parapertussis Not Detected (Not Detecte); Bordetella pertussis Not Detected (Not Detect); Chlamydophila pneumoniae Not Detected (Not Detect); Coronavirus 229E Not Detected (Not Detect); Coronavirus HKU1 Not Detected (Not Detect); Coronavirus NL 63 Not Detected (Not Detect); Coronavirus OC43 Not Detected (Not Detect); Human Metapneumovirus Not Detected (Not Detect); Human Rhinovirus/Enterovirus Detected (Not Detect); Influenza A Not Detected (Not Detect); Influenza B Not Detected (Not Detect); Mycoplasma pneumoniae Not Detected (Not Detect); Parainfluenza Virus 1 Not Detected (Not Detect); Parainfluenza Virus 2 Not Detected (Not Detect); Parainfluenza Virus 3 Not Detected (Not Detect); Parainfluenza Virus 4 Not Detected (Not Detect); Respiratory Syncytial Virus Not Detected (Not Detect); SARS- CoV-2 Not Detected (Not Detecte)
--- NOTE | 2023-09-13 18:12 | DI.RAD.S_ITS ---
PROCEDURE: XR CHEST 1V INDICATIONS: dypsnea TECHNIQUE: One view of the chest was acquired. COMPARISON: None. FINDINGS: Surgical changes and devices: None. Lungs and pleura: Lungs are clear. No pleural effusions or pneumothorax. Mediastinum: Mediastinal contours appear normal. Heart size is normal. Bones and chest wall: No suspicious bony lesions. Overlying soft tissues appear unremarkable. IMPRESSION: No acute cardiopulmonary abnormality is seen. Dictated by: Lars Pisano M.D. on 09/13/2023 at 17:48 Approved by: Lras Pisano M.D. on 09/13/2023 at 17:49
[2023-09-13 18:38] LABS: Creatine Kinase 62 U/L (30-135)
--- NOTE | 2023-09-13 21:21 | ED_ITS ---
HPI - General Adult General Chief complaint: Weakness Stated complaint: Muscle weakness SOB Time Seen by Provider: 09/13/23 15:57 Source: patient Mode of arrival: Ambulatory History of Present Illness HPI narrative: 32-year-old woman with delivery in April comes in complaining of progressive weakness. She has been seen by her primary care doctor has had referrals to Physical therapy, ear nose and throat physicians, Neurology with an appointment in December, has had a recent brain MRI in continues to feel dizzy and globally weak with symptoms dramatically worsening over the last 3 days. She does not note any fevers, lower extremity edema, palpitations, headaches, nausea, vomiting or diarrhea. She does note that her weakness and fatigue are getting to the point that she is concerned she can not care for her children. Related Data Home Medications Medication Instructions Recorded Confirmed No Known Home Medications 08/31/23 08/31/23 Allergies Allergy/AdvReac Type Severity Reaction Status Date / Time No Known Drug Allergies Allergy Verified 09/13/23 15:14 Review of Systems Review of Systems Narrative: Pertinent positive and negative findings as per HPI Patient History Medical History Anxiety Vertigo (~2014) Ovarian cyst (~2010) Human papilloma virus (~2015) Abnormal Pap smear of cervix (~2015) No active medical problems Surgical History History of removal of skin mole [employer] teeth extracted Family History Father Hypertension Hyperlipidemia Mother Skin cancer Hyperlipidemia Grandfather Stroke Melanoma Grandfather Lung cancer Grandmother Alzheimer disease Grandmother Alzheimer disease Social History marital status: number of children: 1 household members: spouse and children lives independently: Yes caregiver/support person: Yes housing: house pets and animals: Yes (3 dogs) education level: college (lakhwinder's degree) occupational status: employed current occupational exposures/hazards: No special cami needs: No travel history: recent (domestic only) seatbelt use: always water heater temp set < 120 deg: Yes working smoke detector in home: Yes fire extinguisher in home: Yes carbon monox detector in home: Yes firearms in home: Yes firearms unloaded and locked: Yes do you feel safe at home: Yes Smoking Status: Never smoker second hand exposure: No alcohol intake: former substance use type: does not use during the past year weight has: remained stable well-balanced diet: about half the time daily servings fruits/ve-1 caffeine: Yes (aware of 200mg limit) Type(s) of exercise: aerobic and weight lifting frequency: 3-4 times per week Smoking Status: Never smoker Substance Use Type: does not use Exam Initial Vital Signs Initial Vital Signs: Vital Signs Temperature 98.4 F 09/13/23 15:14 Pulse Rate 104 H 09/13/23 15:14 Respiratory Rate 18 09/13/23 15:14 Blood Pressure 119/76 09/13/23 15:14 Pulse Oximetry 99 09/13/23 15:14 Oxygen Delivery Method Room Air 09/13/23 15:14 General: Healthy appearing, in no acute distress. Able to give a complete and coherent history. Well-nourished well-developed HEENT: Moist mucous membranes, normal sclera with reactive pupils, Neck: No cervical adenopathy Respiratory: Lungs are clear to auscultation, no wheezing no rales no rhonchi. Full and symmetrical air movement Cardiac: Regular rate and rhythm no murmurs no bruits Abdomen: Soft, nontender, good bowel tones, no flank pain Skin: Warm and dry, no rashes Neurologic: Grossly neurologically intact with no obvious asymmetries or abnormalities Extremities: No trauma, well perfused Psych: Cooperative, appropriate insight and affect Course Orders Ordered: ED Orders 09/13/23 15:58 EKG-12 Lead Stat 09/13/23 16:02 Respiratory Panel (Film Array) Stat 09/13/23 16:09 CK [Creatine Kinase] Stat Complete Blood Count AUTO DIFF Stat Comprehensive Metabolic Panel Stat Lipase Stat 09/13/23 18:12 CXR [XR chest 1V] Stat Ondansetron HCl (Ondansetron 4 Mg Odt) 4 mg PO NOW PRN PRN Reason: Nausea And Vomiting Ondansetron HCl (Ondansetron 4 Mg/2 Ml Inj) 4 mg IV NOW PRN PRN Reason: Nausea And Vomiting Discontinued Medications Sodium Chloride (Normal Saline 0.9%) 1,000 mls @ 1,000 mls/hr IV BOLUS ONE Stop: 09/13/23 16:57 Last Infusion: 09/13/23 18:03 Dose: Infused Documented By: Admin: 09/13/23 16:44 Dose: 1,000 mls/hr Documented By: LEISA Vital Signs Vital signs: Vital Signs - 8 hr 09/13/23 15:14 09/13/23 16:09 09/13/23 16:09 Temperature 98.4 F Pulse Rate 104 H 89 Respiratory Rate 18 Blood Pressure 119/76 131/95 H Pulse Oximetry 99 100 Oxygen Delivery Method Room Air 09/13/23 16:30 09/13/23 16:30 09/13/23 17:00 Temperature Pulse Rate 73 73 Respiratory Rate 28 H 24 Blood Pressure 133/86 Pulse Oximetry 100 100 Oxygen Delivery Method 09/13/23 17:00 09/13/23 17:30 09/13/23 17:30 Temperature Pulse Rate 68 Respiratory Rate 22 Blood Pressure 116/76 116/73 Pulse Oximetry 99 Oxygen Delivery Method 09/13/23 18:00 09/13/23 18:00 09/13/23 18:15 Temperature Pulse Rate 75 Respiratory Rate 26 H Blood Pressure 123/72 127/72 Pulse Oximetry 99 Oxygen Delivery Method 09/13/23 18:15 09/13/23 18:30 09/13/23 18:30 Temperature Pulse Rate 69 67 Respiratory Rate 19 19 Blood Pressure 119/74 Pulse Oximetry 100 100 Oxygen Delivery Method 09/13/23 19:00 09/13/23 19:00 09/13/23 19:30 Temperature Pulse Rate 68 Respiratory Rate 20 Blood Pressure 119/73 117/67 Pulse Oximetry 100 Oxygen Delivery Method 09/13/23 19:30 09/13/23 20:00 09/13/23 20:00 Temperature Pulse Rate 71 70 Respiratory Rate 18 19 Blood Pressure 106/58 L Pulse Oximetry 100 99 Oxygen Delivery Method Room Air 09/13/23 20:30 09/13/23 20:30 09/13/23 21:00 Temperature Pulse Rate 65 Respiratory Rate 19 Blood Pressure 115/73 111/55 L Pulse Oximetry 98 Oxygen Delivery Method 09/13/23 21:00 Temperature Pulse Rate 72 Respiratory Rate 18 Blood Pressure Pulse Oximetry 97 Oxygen Delivery Method Medical Decision Making Lab Data 09/13/23 16:09 09/13/23 16:09 Labs: Lab Results 09/13/23 09/13/23 Range/Units 16:02 16:09 WBC 7.5 (4.5-11.0) X10^3/uL RBC 4.84 (4.0-5.2) X10^6/uL Hgb 15.7 (12.0-16.0) g/dL Hct 44.1 (36-46) % MCV 91.1 (80-100) fL MCH 32.3 (26-34) PG MCHC 35.5 (30-36) % RDW 12.5 (11.6-14.8) % Plt Count 260 (150-400) X10^3/uL Neut % (Auto) 81.6 H (50-75) % Lymph % (Auto) 13.9 L (25-40) % Hernando % (Auto) 3.7 (3-14) % Eos % (Auto) 0.4 L (2-4) % Baso % (Auto) 0.4 (0-2) % Neut # (Auto) 6100 (0668-2248) /uL Lymph # (Auto) 1000 L (7897-9577) /uL Hernando # (Auto) 300 (0-900) /uL Eos # (Auto) 0 (0-450) /uL Baso # (Auto) 0 (0-100) /uL Sodium 138 (137-145) mmol/L Potassium 4.0 (3.4-5.1) mmol/L Chloride 104 (98-107) mmol/L Carbon Dioxide 26 (22-32) mmol/L BUN 6 L (7-17) mg/dL Creatinine 0.75 (0.52-1.04) mg/dL Estimated GFR > 60 (>60) mL/min BUN/Creatinine Ratio 8.0 (6-22) Glucose 111 H (70-100) mg/dL Calcium 9.7 (8.4-10.2) mg/dL Total Bilirubin 0.7 (0.2-1.3) mg/dL AST 28 (14-36) IU/L ALT 20 (<35) IU/L Alkaline Phosphatase 57 (38-126) U/L Total Creatine Kinase 62 (30-135) U/L Total Protein 8.5 H (6.3-8.2) g/dL Albumin 4.6 (3.5-5.0) g/dL Globulin 3.9 (1.7-4.1) g/dL Albumin/Globulin Ratio 1.2 (1.0-2.8) Lipase 111 (23-300) U/L Chlamy pneumoniae PCR Not detected (Not Detect) Adenovirus (PCR) Not detected (Not Detect) B.parapertussis DNA PCR Not detected (Not Detecte) Coronavirus OC43 (PCR) Not detected (Not Detect) Coronavirus HKU1 (PCR) Not detected (Not Detect) Coronavirus 229E (PCR) Not detected (Not Detect) SARS-CoV-2 (PCR) Not detected (Not Detecte) Coronavirus NL63 (PCR) Not detected (Not Detect) Human Metapneumovir PCR Not detected (Not Detect) Influenza Type A (PCR) Not detected (Not Detect) Influenza Type B (PCR) Not detected (Not Detect) M. pneumoniae (PCR) Not detected (Not Detect) Parainfluenza 1 (PCR) Not detected (Not Detect) Parainfluenza 2 (PCR) Not detected (Not Detect) Parainfluenza 3 (PCR) Not detected (Not Detect) Parainfluenza 4 (PCR) Not detected (Not Detect) RSV (PCR) Not detected (Not Detect) Entero/Rhino (PCR) Detected H (Not Detect) Point of Care Testing Test Results Negative Urine Dip Bedside Urine Glucose Negative Bedside Urine Bilirubin - Negative Bedside Urine Ketone - Negative Urine Specific [place] 1.000 Bedside Urine Occult Blood +/- Bedside Urine pH 7.5 Bedside Urine Protein - Negative Bedside Urine Urobilinogen - Negative Bedside Urine Nitrite - Negative Bedside Urine Leukocytes - Negative Esterase Point of care testing: Point of Care Testing Test Results Negative Urine Dip Bedside Urine Glucose Negative Bedside Urine Bilirubin - Negative Bedside Urine Ketone - Negative Urine Specific [place] 1.000 Bedside Urine Occult Blood +/- Bedside Urine pH 7.5 Bedside Urine Protein - Negative Bedside Urine Urobilinogen - Negative Bedside Urine Nitrite - Negative Bedside Urine Leukocytes - Negative Esterase [facility] Narrative Medical decision making narrative: CC: Progressive weakness Complicating co-morbidities: Symptoms worsening since April, dizziness and fatigue Data collected from: patient Medical records reviewed: Primary care notes from August 31 are reviewed regarding her overall dizziness Differential considered: Viral syndrome, complications such as a cardiomyopathy, she in syndrome, other electrolyte abnormalities Exam documented above, pertinent findings include: Exam is entirely reassuring Lab Test results independently reviewed as above. Pertinent findings: CBC is unremarkable no significant anemia Chemistries show no significant abnormalities. Normal liver studies. Creatinine kinase is checked to rule out cardiomyopathy or other myopathy and is within normal limits TSH was checked August 31 and is appropriate as is vitamin-D level and vitamin B12 Serology shows entero/rhino virus Imaging studies independently reviewed: Chest x-ray shows no cardiomegaly and no pulmonary infiltrates Discussion: 32-year-old woman with persistent dizziness and weakness since delivery in April with acute worsening symptoms over the last 3 days. She is testing positive for rhino virus which I believe explains the last 3 days. Lab work is reassuring. There is no evidence of significant endocrine abnormalities, infection, anemia, cardiomyopathy or alternate explanation that would require additional workup or hospitalization at this time. Patient is quite frustrated and was hoping for a definitive answer to her continued dizziness and weakness. I encouraged her to continue with current workup and to follow up with her primary care doctor. At this point she is safe for discharge Discharge Plan Departure Patient Disposition: Home Clinical Impression: Rhinovirus infection, Dizziness Instructions: DI for Viral Upper Respiratory Infection -- Adult Activity Restrictions/Additional Instructions: Thank you for coming in today. I am sorry that you are continuing to suffer with this dizziness and weakness. Your workup today shows rhino virus, which causes typical upper respiratory/cold symptoms. I suspect this is why your symptoms are worse in the last 3 days. I do not have a good explanation for your other symptoms but can tell you that it is not because of significant anemia, electrolyte abnormalities, thyroid dysfunction, cardiomyopathy, heart issues, bacterial pneumonia and based on your brain MRI there are no dramatic abnormalities structurally in your brain and no prior strokes. Using 400 mg of ibuprofen (2 [id number] pills) and 1 Tylenol every 6 hours can be very helpful in controlling pain. I would encourage you to follow up with your primary care doctor regarding the chronic symptoms. I wish you the very best. Prescriptions: No Action No Known Home Medications Referrals: Shanta Blanchard MD [Primary Care Provider] - Stand Alone Forms: Patient Portal/API
== END 2023-09-13 21:50 | disposition home or self-care (01) ==
PROVIDERS: Emergency Medicine; Emergency Provider Emergency Medicine; PCP Family Medicine
DX: B34.8 Other viral infections of unspecified site (principal); R42 Dizziness and giddiness; R06.00 Dyspnea, unspecified; Z20.822 Contact with and (suspected) exposure to COVID-19
CPT/HCPCS: 36415; 71045; 80053; 81003; 81025; 82550; 83690; 85025; 87633; 93005; 96360; 99284

== ENCOUNTER → 2023-09-20 15:51 | Outpatient (CLI) | payer OTHER, SELFPAY ==
--- NOTE | 2023-09-20 15:56 | DI.US.S_ITS ---
PROCEDURE: US SOFT TISSUE HEAD AND NECK INDICATIONS: FOREHEAD LUMP RIGHT OF MIDLINE TECHNIQUE: Real-time scanning was performed of the neck region of interest, with image documentation. COMPARISON: [facility], MR, MR HEAD/BRAIN WO CON, 08/29/2023, 11:23. FINDINGS: Small lentiform echogenic focus measuring 10 x 8 x 1 mm is seen abutting the calvarium in the right frontal region corresponding to the palpable abnormality. The lesion appears to be deep to the scalp as well as the periosteum. IMPRESSION: Palpable abnormality corresponds to a small echogenic focus abutting the frontal calvarium that appears to be deep to the scalp and to the periosteum. Findings are suspicious for a small subgaleal lipoma versus less likely the sequela of prior trauma or other benign process. No involvement of the underlying calvarial bone or cortical step-off is seen. Approved by: Dez Urias M.D. on 09/20/2023 at 21:59
== END ==
LOC: US 15:52
PROVIDERS: PCP Family Medicine; Referring Provider Family Medicine; Visit Provider Family Medicine
DX: R22.0 Localized swelling, mass and lump, head (principal)
CPT/HCPCS: 76536

== ENCOUNTER → 2023-09-25 09:20 | Outpatient (CLI) | payer OTHER, SELFPAY ==
--- NOTE | 2023-09-25 09:21 | DI.MRI.S_ITS ---
PROCEDURE: MR CERVICAL SPINE WO/W CON INDICATIONS: progressing weakness, r/o MS TECHNIQUE: Noncontrast sagittal T1 spin echo and T2 fast spin echo, sagittal STIR, sagittal PD fast spin echo, foraminal oblique sagittal T2 fast spin echo, axial gradient echo or T2 fast spin echo through the cervical spine. After the administration of contrast, sagittal and axial T1 spin echo with fat saturation through the cervical spine. COMPARISON: [facility], MR, MR THORACIC SPINE WO/W CON, 09/25/2023, 9:34. FINDINGS: Image quality: Excellent. Alignment and curvature: There is normal bony alignment. Marrow: Marrow demonstrates normal overall signal. Spinal cord: Visualized spinal cord is normal in size, without white matter lesions. No suspicious intramedullary enhancement. No cerebellar tonsillar herniation. Paraspinous soft tissues: No paravertebral masses or suspicious enhancement. C2-C3: Normal appearance. C3-C4: Normal appearance. C4-C5: Normal appearance. C5-C6: Normal appearance. C6-C7: Normal appearance. C7-T1: Normal appearance. IMPRESSION: 1. No white matter lesion within the cervical spine. 2. No abnormal enhancing foci. 3. No spinal canal or foraminal narrowing. Dictated by: Neptali Huang M.D. on 09/25/2023 at 10:44 Approved by: Neptali Huang M.D. on 09/25/2023 at 10:49
--- NOTE | 2023-09-25 09:30 | DI.MRI.S_ITS ---
PROCEDURE: MR LUMBAR SPINE WO/W CON INDICATIONS: progressing weakness, r/o MS TECHNIQUE: Noncontrast sagittal T1 spin echo and T2 fast spin echo, sagittal STIR, axial T1 and T2 fast spin echo through the lumbar spine. In cases with scoliosis, additional coronal T2 fast spin echo may be performed. After the administration of contrast, sagittal and axial T1 spin echo with fat saturation through the lumbar spine. COMPARISON: None. FINDINGS: Image quality: Exam is degraded by patient motion.. Alignment and curvature: There is normal bony alignment. Marrow: Marrow is of normal overall signal. No acute vertebral body compression fractures. No suspicious marrow enhancement. Spinal cord: Conus medullaris terminates at the L1 level. Visualized spinal cord demonstrates normal signal, without suspicious enhancement. Paraspinous soft tissues: No paravertebral masses or abnormal enhancement. T12-L1: Normal appearance. L1-L2: Normal appearance. L2-L3: Normal appearance. L3-L4: Normal appearance. L4-L5: Normal appearance. L5-S1: Normal appearance. IMPRESSION: 1. No white matter lesion identified. 2. No abnormal foci of enhancement. 3. No significant spinal canal foraminal narrowing. Dictated by: Neptali Huang M.D. on 09/25/2023 at 10:52 Approved by: Neptali Huang M.D. on 09/25/2023 at 10:55
--- NOTE | 2023-09-25 10:00 | DI.MRI.S_ITS ---
PROCEDURE: MR THORACIC SPINE WO/W CON INDICATIONS: progressing weakness, r/o MS TECHNIQUE: Noncontrast sagittal T1 spin echo and T2 fast spin echo, sagittal STIR, axial T1 and T2 fast spin echo through the thoracic spine. After the administration of contrast, axial and sagittal T1 spin echo with fat saturation through the thoracic spine. COMPARISON: None. FINDINGS: Image quality: Excellent. Alignment and curvature: There is normal bony alignment. Marrow: Marrow is of normal overall signal. No acute vertebral body compression fractures. Spinal cord: Visualized spinal cord is of normal signal and size, without abnormal enhancement. Paraspinous soft tissues: No paravertebral masses or abnormal enhancement. Miscellaneous: Small right subarticular disc protrusion at T8-T9 resulting in mild spinal canal stenosis. IMPRESSION: No white matter lesion identified. No abnormal cord enhancement. Small right disc protrusion at T8-T9 resulting in mild spinal canal stenosis. Dictated by: Neptali Huang M.D. on 09/25/2023 at 10:49 Approved by: Neptali Huang M.D. on 09/25/2023 at 10:51
[2023-09-25 12:09] LABS: Appearance Urine UA CLEAR; Bilirubin Urine UA NEGATIVE (NEGATIVE); Color Urine UA YELLOW; Glucose Urine UA NEGATIVE (Negative); Ketones Urine UA NEGATIVE (NEGATIVE); Leukocyte Esterase Urine UA 1+ (NEGATIVE); Nitrite Urine UA NEGATIVE (Negative); Occult Blood Urine UA NEGATIVE (Negative); Protein Urine UA NEGATIVE (Negative); Urobilinogen Urine UA 0.2 E.U./dL (0.2)
[2023-09-25 12:16] LABS: RBC Urine None Seen (0-5/HPF); WBC Urine 10-30/HPF (0-5/HPF)
[2023-09-25 12:17] LABS: Bacteria Urine Moderate (10-30); Culture Indicated Urine Specimen Cultured; Squamous Epithelial Cell Urine >30 /HPF (0-5/HPF)
[2023-09-25 12:40] LABS: Erythrocyte Sedimentation Rate 7 MM/HR (0-20)
[2023-09-25 12:43] LABS: C-Reactive Protein Quant 0.6 mg/dL (<1.0); Lactate Dehydrogenase 139 U/L (120-246)
[2023-09-29 05:52] LABS: Aldolase 5.4 U/L (3.3-10.3)
[2023-09-30 10:30] LABS: ANA Screen, IFA Negative (.)
[2023-10-11 11:14] LABS: Acetylcholine Receptor Bind AB 0.03
[2023-10-11 11:19] LABS: Acetylcholine Blocking AB 17
[2023-10-11 11:37] LABS: Acetylcholine Modulating AB 3
== END ==
PROVIDERS: PCP Family Medicine; Referring Provider Family Medicine; Visit Provider Family Medicine
DX: M51.24 Other intervertebral disc displacement, thoracic region (principal); M48.04 Spinal stenosis, thoracic region; R53.1 Weakness
CPT/HCPCS: 36415; 72156; 72157; 72158; 81001; 82085; 83519; 83615; 85651; 86038; 86140; 86255; 87086